=== PATIENT | female | born 1985 | race Caucasian/White ===

== ENCOUNTER 2016-12-03 16:50 | Outpatient (CLI) | payer OTHER ==
--- NOTE | 2016-12-03 17:52 | Non Stress Test Report ---
Non Stress Test Datetime Report Generated by CPN: 12/03/2016 17:52 DEMOGRAPHIC EGA NST: 35.5 INDICATION Indication for Study: Diabetes Mellitus; Ordered by Provider MONITORING Monitor Explained: Monitor Explained; Test Explained; Patient Verbalized Understanding Time on Monitor: 12/03/2016 17:28 Time off Monitor: 12/03/2016 17:49 NST Duration: 21 NST INTERVENTIONS NST Interventions: PO Hydration Physician Notified NST: H. Bill CNM BABY A: [id number] BABY A Movement : Present Contraction Frequency : x1 FHR Baseline : 145 Accelerations : 15X15 Decelerations : None Variability : Moderate 6-25bpm NST Review: Meets Criteria for Reactive NST NST Review and Verified By : Rochelle Ryan RN NST Results: Reactive NST REPORT Report Trigger: Send Report
== END 2016-12-03 17:52 | disposition home or self-care (01) ==
LOC: LC 16:50
PROVIDERS: ATTEND Obstetrics & Gynecology
PROC: 4A1HXCZ Monitoring of Products of Conception, Cardiac Rate, External Approach (ICD-10-PCS; principal; 2016-12-03)
DX: Z34.93 Encounter for supervision of normal pregnancy, unspecified, third trimester (principal); Z36 Encounter for antenatal screening of mother; Z3A.36 36 weeks gestation of pregnancy
CPT/HCPCS: 59025

== ENCOUNTER 2016-12-16 15:06 | Outpatient (CLI) | payer OTHER ==
--- NOTE | 2016-12-16 15:50 | Non Stress Test Report ---
Non Stress Test Datetime Report Generated by CPN: 12/16/2016 15:49 DEMOGRAPHIC EGA NST: 37.4 INDICATION Indication for Study: Ordered by Provider MONITORING Monitor Explained: Monitor Explained; Test Explained; Patient Verbalized Understanding Time on Monitor: 12/16/2016 15:17 Time on Monitor: 12/16/2016 15:16 Time off Monitor: 12/16/2016 15:45 Time off Monitor: 12/16/2016 15:45 NST Duration: 28 NST INTERVENTIONS NST Interventions: PO Hydration; Reposition Patient Physician Notified NST: A. Emmel, CNM BABY A: [id number] BABY A Movement : Present Movement : Present Contraction Frequency : 0 FHR Baseline : 125 Accelerations : 15X15 Accelerations : 15X15 Decelerations : None Decelerations : None Variability : Moderate 6-25bpm NST Review: Meets Criteria for Reactive NST NST Review: Meets Criteria for Reactive NST NST Review and Verified By : Riley Domínguez RN NST Results: Reactive NST Results: Reactive NST REPORT Report Trigger: Send Report
== END 2016-12-16 15:51 | disposition home or self-care (01) ==
LOC: LC 15:06
PROVIDERS: ATTEND Student in an Organized Health Care Education/Training Program
PROC: 4A1HXCZ Monitoring of Products of Conception, Cardiac Rate, External Approach (ICD-10-PCS; principal; 2016-12-16)
DX: Z34.93 Encounter for supervision of normal pregnancy, unspecified, third trimester (principal); Z36 Encounter for antenatal screening of mother; Z3A.37 37 weeks gestation of pregnancy
CPT/HCPCS: 59025

== ENCOUNTER 2016-12-19 06:28 | Inpatient (IN) | payer OTHER ==
[2016-12-19] MEDS ORDERED: RINGERS SOLUTION,LACTATED 300 ML IV ONE (06:43)
[2016-12-19] MEDS ORDERED: OXYTOCIN/NORMAL SALINE 1,000 ML IV PRN ×2 (06:43→14:55)
[2016-12-19] MEDS ORDERED: PENICILLIN G POTASSIUM 5,000,000 UNIT in DEXTROSE 5%-WATER 100 ML IV ONE (06:43)
[2016-12-19] MEDS ORDERED: RINGERS SOLUTION,LACTATED 1,000 ML IV PRN (06:43)
[2016-12-19 06:58] LABS: APPEARANCE,URINE CLOUDY; BILIRUBIN,URINE NEGATIVE (NEGATIVE); GLUCOSE, URINE NEGATIVE (NEGATIVE); KETONES,URINE NEGATIVE (NEGATIVE); LEUKOCYTE ESTERASE,URINE LARGE (NEGATIVE); NITRITE,URINE NEGATIVE (NEGATIVE); PROTEIN,URINE NEGATIVE (NEGATIVE); URINE SPECIFIC GRAVITY 1.006; UROBILINOGEN,URINE NEGATIVE mg/dL (<2.0)
[2016-12-19 07:15] LABS: ABSOLUTE LYMPHOCYTES (AUTO) 1.6 10^3/uL (0.5-4.7); ABSOLUTE MONOCYTES (AUTO) 0.9 10^3/uL (0.1-1.4); ABSOLUTE NEUT (AUTO) 10.7 10^3/uL (1.7-8.2); BASOPHILS % (AUTO) 0.3 % (0-2); EOSINOPHILS % (AUTO) 0.3 % (0-6); HEMOGLOBIN 12.9 g/dL (12.0-15.5); HGB HCT DIFFERENCE 0.7; MEAN CORPUSCULAR HGB CONC 33.9 g/dL (32.0-36.0); MEAN CORPUSCULAR VOLUME 89 fl (80-97); MONOCYTES % (AUTO) 6.7 % (3-13); RED BLOOD COUNT 4.28 10^6/uL (3.72-5.28); RED CELL DISTRIBUTION WIDTH 12.9 % (11.5-14.0); SEGMENTED NEUTROPHILS % (AUTO) 80.7 % (42-78); WHITE BLOOD COUNT 13.3 10^3/uL (4.0-10.5)
[2016-12-19 07:21] LABS: URINE BARBITURATES SCREEN NEGATIVE; URINE METHADONE SCREEN NEGATIVE; URINE OPIATES LOW NEGATIVE; URINE PHENCYCLIDINE SCREEN NEGATIVE
[2016-12-19] MEDS ORDERED: OXYTOCIN/NORMAL SALINE 20 UNIT/1,000 ML RTUINJ ONE ×2 (07:33→11:13)
[2016-12-19 07:34] LABS: ALANINE AMINOTRANSFERASE 32 U/L (9-52); ALBUMIN 3.5 g/dL (3.5-5.0); ALKALINE PHOSPHATASE 133 U/L (38-126); ANION GAP 11 (5-19); ASPARTATE AMINO TRANSFERASE 14 U/L (14-36); BILIRUBIN,TOTAL 0.6 mg/dL (0.2-1.3); BLOOD UREA NITROGEN 6 mg/dL (7-20); CALCIUM 9.8 mg/dL (8.4-10.2); CARBON DIOXIDE 20 mmol/L (22-30); CHLORIDE 109 mmol/L (98-107); CREATININE RESULT 0.45 mg/dL (0.52-1.25); GLUCOSE 99 mg/dL (75-110); LDH 448 U/L (313-618); TOTAL PROTEIN 5.5 g/dL (6.3-8.2)
[2016-12-19] MEDS ORDERED: PENICILLIN G-K 5 MILLION UNIT VIAL ONE ×2 (07:34→11:46)
--- NOTE | 2016-12-19 08:00 | L&D Flow Sheet ---
LD Flowsheet Datetime Report Generated by CPN: 12/19/2016 08:00 Datetime: 12/19/2016 07:45 Pitocin (milliunit): Pitocin Started (milliunits) @ 2; Pitocin 20 Units in 1000ml NS (Sanju Zoe, RN) Datetime: 12/19/2016 07:31 I/O Interventions: Up to BR (Lisbeth Ryan, RN) Datetime: 12/19/2016 07:28 Dilatation (cm): 2.5 (Lisbeth Ryan, RN) Effacement (%): 80 (Lisbeth Ryan, RN) Station: -1 (Lisbeth Ryan, RN) Exam by: Rochelle Ryan RN (Lisbeth Ryan RN) Datetime: 12/19/2016 07:06 Comments: patienting sitting straight up in bed (Agueda Jones, RN) Datetime: 12/19/2016 07:00 Stage of : Antepartum (Agueda Jones, RN) Monitor Mode: External; Palpation (Agueda Jones, RN) Frequency (min): none (Agueda Jones, RN) Resting Tone (Palpate): Relaxed (Agueda Jones, RN) Monitor Mode: External US (Agueda Jones, RN) FHR Baseline Rate : 150 (Agueda Jones, RN) Variability: Moderate 6-25 bpm (Agueda Jones, RN) Accelerations: None (Agueda Jones, RN) Decelerations: None (Agueda Jones, RN) Communication: RN at Bedside; RN Reviewed Strip (Agueda Jones, RN) Datetime: 12/19/2016 06:54 Pain Scale: 0 (Agueda Jones, RN) Pain Presence: None/Denies (Agueda Jones, RN) Pain Type: N/A (Agueda Jones, RN) Vaginal Bleeding: None (Agueda Jones, RN) Level of Consciousness: Fully Conscious (Agueda Jones, RN) DTR's/Clonus: DTRs 1+; No Clonus (Agueda Jones, RN) Headache: Denies (Agueda Jones, RN) Breath Sounds, Left: Clear and Equal (Agueda Jones, RN) Breath Sounds, Right: Clear and Equal (Agueda Jones, RN) Nausea/Vomiting: Denies (Agueda Jones, RN) RUQ Epigastric Pain: Denies (Agueda Jones, RN) LaborFlag: Antepartum (QS system process) Datetime: 12/19/2016 06:53 NBP Sys/Marysol/Mean (mmHg): 120 (QS system process) : 92 (QS system process) : 101 (QS system process) Pulse: 110 (QS system process) LaborFlag: Antepartum (QS system process)
--- NOTE | 2016-12-19 10:00 | L&D Flow Sheet ---
LD Flowsheet Datetime Report Generated by CPN: 12/19/2016 10:00 Datetime: 12/19/2016 09:57 NBP Sys/Marysol/Mean (mmHg): 124 (QS system process) : 70 (QS system process) : 92 (QS system process) Pulse: 94 (QS system process) LaborFlag: Antepartum (QS system process) Datetime: 12/19/2016 09:45 Monitor Mode: External (Lisbeth Ryan RN) Frequency (min): 3-4 (Lisbeth Ryan RN) Quality: Mild/Moderate (Lisbeth Ryan RN) Duration (sec): 50-70 (Lisbeth Ryan RN) Resting Tone (Palpate): Relaxed (Lisbeth Ryan RN) Monitor Mode: External US (Lisbeth Ryan RN) FHR Baseline Rate : 135 (Lisbeth Ryan RN) Variability: Moderate 6-25 bpm (Lisbeth Ryan RN) Accelerations: 15X15 (Lisbeth Ryan RN) Decelerations: None (Lisbeth Ryan RN) Pitocin (milliunit): Pitocin Increased to (milliunits) @ 18 (Lisbeth Ryan RN) Datetime: 12/19/2016 09:43 NBP Sys/Marysol/Mean (mmHg): 128 (QS system process) : 70 (QS system process) : 91 (QS system process) Pulse: 86 (QS system process) LaborFlag: Antepartum (QS system process) Datetime: 12/19/2016 09:30 Monitor Mode: External; Palpation (Lisbeth Ryan RN) Frequency (min): x1 (Lisbeth Ryan RN) Quality: Mild/Moderate (Lisbeth Ryan RN) Duration (sec): 50 (Lisbeth Ryan RN) Resting Tone (Palpate): Relaxed (Lisbeth Ryan RN) Monitor Mode: External US (Lisbeth Ryan RN) FHR Baseline Rate : 135 (Lisbeth Ryan RN) Variability: Moderate 6-25 bpm (Lisbeth Ryan RN) Accelerations: 15X15 (Lisbeth Ryan RN) Decelerations: None (Lisbeth Ryan RN) Pitocin (milliunit): Pitocin Increased to (milliunits) @ 16 (Lisebth Ryan RN) Datetime: 12/19/2016 09:23 I/O Interventions: Up to BR (Lisbeth Ryan RN) Datetime: 12/19/2016 09:15 Monitor Mode: External (Lisbeth Ryan RN) Frequency (min): 2-3 (Lisbeth Ryan RN) Quality: Mild (Lisbeth Ryan RN) Duration (sec): 40-80 (Lisbeth Ryan RN) Resting Tone (Palpate): Relaxed (Lisbeth Ryan RN) Monitor Mode: External US (Lisbeth Ryan, RN) FHR Baseline Rate : 135 (Lisbeth Ryan, RN) Variability: Moderate 6-25 bpm (Lisbeth Ryan, RN) Accelerations: 15X15 (Lisbeth Ryan, RN) Decelerations: None (Lisbeth Ryan, RN) Pitocin (milliunit): Pitocin Increased to (milliunits) @ 14 (Lisbeth Ryan, RN) Datetime: 12/19/2016 09:12 NBP Sys/Marysol/Mean (mmHg): 134 (QS system process) : 81 (QS system process) : 100 (QS system process) Pulse: 95 (QS system process) LaborFlag: Antepartum (QS system process) Datetime: 12/19/2016 09:06 Comments: tracing maternal HR (Lisbeth Ryan, RN) Datetime: 12/19/2016 09:05 Pulse: 99 (QS system process) SpO2 (%): 97 (QS system process) LaborFlag: Antepartum (QS system process) Datetime: 12/19/2016 09:04 Monitor Interventions for FHR: Ultrasound Adjusted (Lisbeth Ryan RN) Communication: RN at Bedside (Lisbeth Ryan RN) Datetime: 12/19/2016 09:00 Monitor Mode: External (Lisbeth Ryan RN) Frequency (min): 3-6 (Lisbeth Ryan RN) Quality: Mild (Lisbeth Ryan RN) Duration (sec): 40-60 (Lisbeth Ryan RN) Resting Tone (Palpate): Relaxed (Lisbeth Ryan RN) Monitor Mode: External US (Lisbeth Ryan RN) FHR Baseline Rate : 135 (Lisbeth Ryan RN) Variability: Moderate 6-25 bpm (Lisbeth Ryan, RN) Accelerations: 15X15 (Lisbeth Ryan, RN) Decelerations: None (Lisbeth Ryan, RN) Pitocin (milliunit): Pitocin Increased to (milliunits) @ 12 (Lisbeth Ryan, RN) Datetime: 12/19/2016 08:58 NBP Sys/Marysol/Mean (mmHg): 128 (QS system process) : 78 (QS system process) : 97 (QS system process) Pulse: 84 (QS system process) LaborFlag: Antepartum (QS system process) Datetime: 12/19/2016 08:48 Bedside Blood Glucose: 82 (QS system process) LaborFlag: Antepartum (QS system process) Datetime: 12/19/2016 08:45 Monitor Mode: External (Lisbethnéstor Ryan, RN) Frequency (min): x2 (Lisbeth Ryan, RN) Quality: Mild (Lisbeth Connor, RN) Duration (sec): 50-80 (Lisbethnéstor Ryan, RN) Resting Tone (Palpate): Relaxed (Lisbeth Ryan, RN) Monitor Mode: External US (Lisbeth Ryan, RN) FHR Baseline Rate : 145 (Lisbethnéstor Ryan, RN) Variability: Moderate 6-25 bpm (Lisbeth Connor, RN) Accelerations: 15X15 (Lisbethnéstor Ryan, RN) Decelerations: None (Lisbeth Ryan, RN) Pitocin (milliunit): Pitocin Increased to (milliunits) @ 10 (Lisbethnéstor Ryan, RN) Datetime: 12/19/2016 08:43 NBP Sys/Marysol/Mean (mmHg): 130 (QS system process) : 81 (QS system process) : 99 (QS system process) Pulse: 98 (QS system process) LaborFlag: Antepartum (QS system process) Datetime: 12/19/2016 08:30 Monitor Mode: External (Lisbeth Ryan, RN) Frequency (min): x1 (Lisbeth Ryan, RN) Quality: Mild (Lisbeth Ryan, RN) Duration (sec): 80 (Lisbeth Ryan, RN) Resting Tone (Palpate): Relaxed (Lisbeth Ryan, RN) Monitor Mode: External US (Lisbeth Ryan, RN) FHR Baseline Rate : 145 (Lisbeth Ryan, RN) Variability: Moderate 6-25 bpm (Lisbeth Ryan, RN) Accelerations: 15X15 (Lisbeth Ryan, RN) Decelerations: None (Lisbeth Ryan, RN) Pitocin (milliunit): Pitocin Increased to (milliunits) @ 8 (Sanju Enriquez RN) Datetime: 12/19/2016 08:29 NBP Sys/Marysol/Mean (mmHg): 136 (QS system process) : 82 (QS system process) : 103 (QS system process) Pulse: 81 (QS system process) LaborFlag: Antepartum (QS system process) Datetime: 12/19/2016 08:24 Comfort Measures: Rocking Chair (Lisbeth Ryan RN) Datetime: 12/19/2016 08:15 Monitor Mode: External (Lisbeth Ryan RN) Frequency (min): x2 (Lisbeth Ryan RN) Quality: Mild (Lisbeth Ryan RN) Duration (sec): 40-90 (Lisbeth Ryan RN) Resting Tone (Palpate): Relaxed (Lisbeth Ryan RN) Monitor Mode: External US (Sanju Enriquez RN) FHR Baseline Rate : 145 (Sanju Enriquez, RN) Variability: Moderate 6-25 bpm (Sanju Enriquez, RN) Accelerations: 15X15 (Sanju Enriquez, RN) Decelerations: None (Sanju Enriquez, RN) Pitocin (milliunit): Pitocin Increased to (milliunits) @ 6 (Sanju Enriquez, RN) I/O Interventions: Up to BR (Sanju Enriquez, RN) Datetime: 12/19/2016 08:13 NBP Sys/Marysol/Mean (mmHg): 135 (QS system process) : 84 (QS system process) : 105 (QS system process) Pulse: 91 (QS system process) LaborFlag: Antepartum (QS system process) Datetime: 12/19/2016 08:00 Monitor Mode: External (Sanju Enriquez RN) Frequency (min): x1 (Sanju Enriquez RN) Quality: Mild (Sanju Enriquez RN) Duration (sec): 90 (Sanju Enriquez RN) Resting Tone (Palpate): Relaxed (Sanju Enriquez RN) Monitor Mode: External US (Sanju Enriquez RN) FHR Baseline Rate : 145 (Sanju Enriquez RN) Variability: Moderate 6-25 bpm (Sanju Enriquez RN) Accelerations: 15X15 (Sanju Enriquez RN) Decelerations: None (Sanju Enriquez RN) Pitocin (milliunit): Pitocin Increased to (milliunits) @ 4 (Sanju Enriquez RN)
[2016-12-19] MEDS ORDERED: PENICILLIN G POTASSIUM 2,500,000 UNIT in DEXTROSE 5%-WATER 50 ML IV SCH (10:46)
[2016-12-19] MEDS ORDERED: EPHEDRINE SULFATE INJ 50 MG/1 ML AMPULE ONE (11:12)
[2016-12-19] MEDS ORDERED: MISOPROSTOL 0.2 MG TABLET ONE (11:12)
[2016-12-19] MEDS ORDERED: BUPIVACAINE HCL 0.25 % INJ/PF (2.5 MG/1 ML) 30 ML VIAL ONE (11:13)
[2016-12-19] MEDS ORDERED: FENTANYL/BUPIVACAINE/NS/PF 200 MCG/100 ML RTUINJ EPI ONE (11:13)
[2016-12-19] MEDS ORDERED: LIDOCAINE 1% INJ-PF (10 MG/ML) 30 ML SDV ONE (11:13)
--- NOTE | 2016-12-19 12:00 | L&D Flow Sheet ---
LD Flowsheet Datetime Report Generated by CPN: 12/19/2016 12:00 Datetime: 12/19/2016 11:59 NBP Sys/Marysol/Mean (mmHg): 132 (QS system process) : 84 (QS system process) : 101 (QS system process) Pulse: 77 (QS system process) LaborFlag: Antepartum (QS system process) Datetime: 12/19/2016 11:58 Epidural Procedure: Cath Placed; Test Dose; Loading Dose (Lisbeth Ryan, RN) Datetime: 12/19/2016 11:51 Procedure Verify: Correct Patient Identity; Correct Side and Site are Marked; Accurate Procedure Consent Form; Agreement on Procedure to be Done; Correct Patient Position (Lisbeth Ryan RN) Epidural Positioning: Sitting (Lisbeth Ryan RN) Anesthesia Comments: Dr Fair at bedside (Lisbeth Ryan RN) Datetime: 12/19/2016 11:50 NBP Sys/Marysol/Mean (mmHg): 137 (QS system process) : 80 (QS system process) : 100 (QS system process) Pulse: 80 (QS system process) LaborFlag: Antepartum (QS system process) Datetime: 12/19/2016 11:49 Pulse: 76 (QS system process) SpO2 (%): 100 (QS system process) LaborFlag: Antepartum (QS system process) Datetime: 12/19/2016 11:45 Membrane Status: Ruptured (Lisbeth Ryan RN) Membranes Rupture Method: Spontaneous (Lisbeth Ryan RN) Amniotic Fluid Color: Clear (Lisbeth Ryan RN) Amniotic Fluid Amount: Moderate (Lisbeth Ryan RN) Amniotic Fluid Odor: Normal (Lisbeth Ryan RN) Datetime: 12/19/2016 11:28 NBP Sys/Marysol/Mean (mmHg): 129 (QS system process) : 73 (QS system process) : 95 (QS system process) Pulse: 81 (QS system process) LaborFlag: Antepartum (QS system process) Datetime: 12/19/2016 11:15 Monitor Mode: External (Lisbeth Ryan RN) Frequency (min): 1-3 (Lisbeth Ryan RN) Quality: Mild/Moderate (Lisbeth Ryan RN) Duration (sec): 50-80 (Lisbeth Ryan RN) Resting Tone (Palpate): Relaxed (Lisbeth Ryan RN) Monitor Mode: External US (Lisbeth Ryan RN) FHR Baseline Rate : 130 (Lisbeth Ryan RN) Variability: Moderate 6-25 bpm (Lisbeth Ryan, RN) Accelerations: 15X15 (Lisbeth Ryan, RN) Decelerations: None (Lisbeth Ryan RN) Pitocin (milliunit): Pitocin Remains (milliunits) @ 20 (Lisbeth Ryan, RN) Datetime: 12/19/2016 11:13 NBP Sys/Marysol/Mean (mmHg): 121 (QS system process) : 79 (QS system process) : 96 (QS system process) Pulse: 92 (QS system process) LaborFlag: Antepartum (QS system process) Datetime: 12/19/2016 11:09 Pain Presence: Intermittent (Lisbeth Ryan RN) Pain Type: Contraction (Lisbeth Ryan RN) Pain Location: Abdomen (Lisbeth Ryan RN) Pain Coping: Requesting Pain Medication or Epidural (Lisbeth Ryan RN) IV/Blood Work: IV Bolus Started (Lisbeth Ryan RN) Anesthesia Plans: Epidural (Lisbeth Ryan RN) LaborFlag: Antepartum (QS system process) Datetime: 12/19/2016 11:00 Monitor Mode: External (Lisbeth Ryan RN) Frequency (min): 1-3 (Lisbeth Ryan RN) Quality: Mild/Moderate (Lisbeth Ryan RN) Duration (sec): 50-90 (Lisbeth Ryan RN) Resting Tone (Palpate): Relaxed (Lisbeth Ryan RN) Monitor Mode: External US (Lisbeth Ryan RN) FHR Baseline Rate : 130 (Lisbeth Ryan RN) Variability: Moderate 6-25 bpm (Lisbeth Ryan RN) Accelerations: 15X15 (Lisbeth Ryan RN) Decelerations: None (Lisbeth Ryan RN) Pitocin (milliunit): Pitocin Remains (milliunits) @ 20 (Lisbeth Ryan RN) Datetime: 12/19/2016 10:58 NBP Sys/Marysol/Mean (mmHg): 115 (QS system process) : 68 (QS system process) : 86 (QS system process) Pulse: 86 (QS system process) LaborFlag: Antepartum (QS system process) Datetime: 12/19/2016 10:45 Monitor Mode: External (Lisbeth Ryan RN) Frequency (min): 2-3 (Lisbeth Ryan RN) Quality: Mild/Moderate (Lisbeth Ryan RN) Duration (sec): 80-90 (Lisbeth Ryan RN) Resting Tone (Palpate): Relaxed (Lisbeth Ryan RN) Monitor Mode: External US (Lisbeth Ryan RN) FHR Baseline Rate : 135 (Lisbeth Ryan RN) Variability: Moderate 6-25 bpm (Lisbeth Ryan RN) Accelerations: 15X15 (Lisbeth Ryan RN) Decelerations: None (Lisbeth Ryan RN) Pitocin (milliunit): Pitocin Remains (milliunits) @ 20 (Lisbeth Ryan RN) Datetime: 12/19/2016 10:44 Monitor Interventions for UA: [place] Adjusted (Lisbeth Ryan, RN) Datetime: 12/19/2016 10:42 Patient Position/Activity: Birthing Ball (Lisbeth Ryan, RN) Datetime: 12/19/2016 10:37 I/O Interventions: Up to BR (Lisbeth Ryan, RN) Datetime: 12/19/2016 10:30 Monitor Mode: External (Lisbeth Ryan, RN) Resting Tone (Palpate): Relaxed (Lisbeth Ryan, RN) Contraction Comments: contractions not tracing on monitor (Lisbeth Ryan, RN) Monitor Mode: External US (Lisbeth Ryan, RN) FHR Baseline Rate : 135 (Lisbeth Ryan, RN) Variability: Moderate 6-25 bpm (Lisbeth Ryan, RN) Accelerations: 15X15 (Lisbeth Ryan, RN) Decelerations: None (Lisbeth Ryan, RN) Pitocin (milliunit): Pitocin Remains (milliunits) @ 20 (Lisbeth Ryan, RN) Datetime: 12/19/2016 10:28 NBP Sys/Marysol/Mean (mmHg): 153 (QS system process) : 91 (QS system process) : 115 (QS system process) Pulse: 88 (QS system process) LaborFlag: Antepartum (QS system process) Datetime: 12/19/2016 10:15 Monitor Mode: External (Lisbeth Ryan, RN) Frequency (min): 2-3 (Lisbeth Ryan RN) Quality: Mild/Moderate (Lisbeth Ryan, RN) Duration (sec): 50-70 (Lisbeth Ryan, RN) Resting Tone (Palpate): Relaxed (Lisbeth Ryan, RN) Monitor Mode: External US (Lisbeth Ryan RN) FHR Baseline Rate : 135 (Lisbeth Ryan, RN) Variability: Moderate 6-25 bpm (Lisbeth Ryan, RN) Accelerations: 15X15 (Lisbeth Ryan, RN) Decelerations: None (Lisbeth Ryan, RN) Pitocin (milliunit): Pitocin Remains (milliunits) @ 20 (Lisbeth Ryan, RN) Datetime: 12/19/2016 10:13 NBP Sys/Marysol/Mean (mmHg): 123 (QS system process) : 74 (QS system process) : 94 (QS system process) Pulse: 80 (QS system process) LaborFlag: Antepartum (QS system process) Datetime: 12/19/2016 10:00 Monitor Mode: External (Lisbeth Ryan RN) Frequency (min): 2-4 (Lisbeth Ryan RN) Quality: Mild/Moderate (Lisbeth Ryan RN) Duration (sec): 50-70 (Lisbeth Ryan RN) Resting Tone (Palpate): Relaxed (Lisbeth Ryan RN) Monitor Mode: External US (Lisbeth Ryan RN) FHR Baseline Rate : 135 (Lisbeth Ryan RN) Variability: Moderate 6-25 bpm (Lisbeth Ryan, RN) Accelerations: 15X15 (Lisbeth Ryan, RN) Decelerations: None (Lisbeth Ryan, RN) Pitocin (milliunit): Pitocin Increased to (milliunits) @ 20 (Lisbeth Ryan, RN)
--- NOTE | 2016-12-19 12:44 | L&D Progress Notes ---
PROGRESS NOTES Datetime Report Generated by CPN: 12/19/2016 12:44 PROGRESS NOTE Impression: Normal Progression of Labor Procedures: Sterile Vag Exam Plan: Continue Present Management; Induction Informed Consent Obtained: Vaginal Delivery Vital Signs : Reviewed; Within Normal Limits Comment: Pt up to bathrom, SROM Pt desires epidural SVE after epidural as above Continue pitocin S/p 2 doses pcn Anticipate VAGINAL EXAM Dilatation: 4 Dilatation: 2 Effacement: 90 Effacement: 80 Station: 0 Station: -1 Contractions: 2-4 Contractions: irregular MEMBRANES Membranes: Ruptured Membranes: Intact Amniotic Fluid Color: Clear FETUS A FHR - Baseline: 135 Monitoring: External US Variability: Moderate 6-25bpm Accelerations: 15X15 FHR Category: Category I Estimated Weight (gm): 3400 SIGNATURE SIGNATURE: [id number] SIGNATURE: [id number] SIGNATURE: [id number] Assignment: Patricia Park MD Signature: with User ID: HDrake : with User ID: Pari
--- NOTE | 2016-12-19 14:00 | L&D Flow Sheet ---
LD Flowsheet Datetime Report Generated by CPN: 12/19/2016 14:00 Datetime: 12/19/2016 13:44 Patient Position/Activity: Left Extreme; Peanut Ball (Lisbeth Ryan, RN) Datetime: 12/19/2016 13:43 NBP Sys/Marysol/Mean (mmHg): 125 (QS system process) : 78 (QS system process) : 98 (QS system process) Pulse: 77 (QS system process) LaborFlag: Antepartum (QS system process) Datetime: 12/19/2016 13:27 NBP Sys/Marysol/Mean (mmHg): 123 (QS system process) : 67 (QS system process) : 88 (QS system process) Pulse: 91 (QS system process) LaborFlag: Antepartum (QS system process) Datetime: 12/19/2016 13:15 NBP Sys/Marysol/Mean (mmHg): 116 (QS system process) : 69 (QS system process) : 87 (QS system process) Pulse: 85 (QS system process) Monitor Mode: External (Lisbeth Ryan RN) Frequency (min): 2-2.5 (Lisbeth Ryan RN) Quality: Moderate (Lisbeth Ryan RN) Duration (sec): 50-90 (Lisbeth Ryan RN) Resting Tone (Palpate): Relaxed (Lisbeth Ryan RN) Monitor Mode: External US (Lisbeth Ryan RN) FHR Baseline Rate : 115 (Lisbeth Ryan RN) Variability: Moderate 6-25 bpm (Lisbeth Ryan RN) Accelerations: 15X15 (Lisbeth Ryan RN) Decelerations: None (Lisbeth Ryan, RN) Pitocin (milliunit): Pitocin Remains (milliunits) @ 20 (Lisbeth Ryan, RN) LaborFlag: Antepartum (QS system process) Datetime: 12/19/2016 13:07 Patient Position/Activity: Left Lateral (Lisbeth Ryan, RN) Datetime: 12/19/2016 13:06 Monitor Interventions for FHR: Ultrasound Adjusted (Lisbeth Ryan, RN) Patient Position/Activity: Right Lateral (Lisbeth Ryan, RN) Communication: RN at Bedside (Lisbeth Ryan, RN) Datetime: 12/19/2016 13:00 Monitor Mode: External; Palpation (Lisbeth Ryan, RN) Frequency (min): 1.5-3 (Lisbeth Ryan RN) Quality: Moderate (Lisbeth Ryan RN) Duration (sec): 50-90 (Lisbeth Ryan RN) Resting Tone (Palpate): Relaxed (Lisbeth Ryan, RN) Monitor Mode: External US (Lisbeth Ryan RN) FHR Baseline Rate : 120 (Lisbeth Ryan RN) Variability: Moderate 6-25 bpm (Lisbeth Ryan, RN) Accelerations: 15X15 (Lisbeth Ryan, RN) Decelerations: None (Lisbeth Ryan, RN) Pitocin (milliunit): Pitocin Remains (milliunits) @ 20 (Lisbeth Ryan RN) Datetime: 12/19/2016 12:58 NBP Sys/Marysol/Mean (mmHg): 127 (QS system process) : 81 (QS system process) : 100 (QS system process) Pulse: 84 (QS system process) LaborFlag: Antepartum (QS system process) Datetime: 12/19/2016 12:45 Monitor Mode: External (Lisbeth Ryan, RN) Frequency (min): 2-3 (Lisbeth Ryan, RN) Quality: Mild/Moderate (Lisbeth Ryan, RN) Duration (sec): 50-90 (Lisbeth Ryan, RN) Resting Tone (Palpate): Relaxed (Lisbeth Ryan, RN) Monitor Mode: External US (Lisbeth Ryan, RN) FHR Baseline Rate : 125 (Lisbeth Ryan, RN) Variability: Moderate 6-25 bpm (Lisbeth Ryan, RN) Accelerations: 15X15 (Lisbeth Ryan, RN) Decelerations: None (Lisbeth Ryan, RN) Pitocin (milliunit): Pitocin Remains (milliunits) @ 20 (Lisbeth Ryan RN) Datetime: 12/19/2016 12:44 NBP Sys/Marysol/Mean (mmHg): 126 (QS system process) : 80 (QS system process) : 97 (QS system process) Pulse: 81 (QS system process) LaborFlag: Antepartum (QS system process) Datetime: 12/19/2016 12:31 Patient Position/Activity: Left Lateral (Lisbeth Ryan, RN) Datetime: 12/19/2016 12:30 Monitor Mode: External (Lisbeth Ryan RN) Frequency (min): 1.5-3 (Lisbeth Ryan RN) Quality: Mild/Moderate (Lisbeth Ryan RN) Duration (sec): 50-90 (Lisbeth Ryan RN) Resting Tone (Palpate): Relaxed (Lisbeth Ryan RN) Monitor Mode: External US (Lisbeth Ryan RN) FHR Baseline Rate : 125 (Lisbeth Ryan RN) Variability: Moderate 6-25 bpm (Lisbeth Ryan RN) Accelerations: 15X15 (Lisbeth Ryan, RN) Decelerations: None (Lisbeth Ryan RN) Pitocin (milliunit): Pitocin Remains (milliunits) @ 20 (Lisbeth Ryan RN) Datetime: 12/19/2016 12:27 Respirations: 16 (Lisbeth Ryan RN) Temperature (F): 98.3 (Lisbeth Ryan RN) Temperature (C): 36.8 (QS system process) Bedside Blood Glucose: 75 (QS system process) Pain Scale: 2 (Lisbeth Ryan RN) Pain Presence: Intermittent (Lisbeth Ryan RN) Pain Type: Contraction (Lisbeth Ryan RN) Pain Location: Back (Lisbeth Ryan RN) Pain Coping: Talking Through Contractions (Lisbeth Ryan RN) LaborFlag: Antepartum (QS system process) Datetime: 12/19/2016 12:16 Dilatation (cm): 4.0 (Lisbeth Ryan RN) Effacement (%): 80 (Lisbeth Ryan RN) Station: -1 (Lisbeth Ryan RN) Exam by: Pop Khan CNM (Lisbeth Ryan RN) Communication Comments: Pop Khan CNM on unit (Lisbeth Ryan RN) Datetime: 12/19/2016 12:15 Monitor Mode: External (Lisbeth Ryan RN) Frequency (min): 2-3 (Lisbeth Ryan RN) Quality: Mild/Moderate (Lisbeth Ryan RN) Duration (sec): 50-80 (Lisbeht Ryan RN) Resting Tone (Palpate): Relaxed (Lisbeth Ryan RN) Monitor Mode: External US (Lisbeth Ryan, RN) FHR Baseline Rate : 120 (Lisbeth Ryan, RN) Variability: Moderate 6-25 bpm (Lisbeth Ryan RN) Accelerations: 15X15 (Lisbeth Ryan RN) Decelerations: None (Lisbeth Ryan RN) Pitocin (milliunit): Pitocin Remains (milliunits) @ 20 (Lisbeth Ryan, RN) Datetime: 12/19/2016 12:14 NBP Sys/Marysol/Mean (mmHg): 120 (QS system process) : 70 (QS system process) : 90 (QS system process) Pulse: 74 (QS system process) LaborFlag: Antepartum (QS system process) Datetime: 12/19/2016 12:10 Patient Care Comments: LR returned to 125ml/hr (Lisbeth Ryan RN) Datetime: 12/19/2016 12:08 NBP Sys/Marysol/Mean (mmHg): 105 (QS system process) : 57 (QS system process) : 76 (QS system process) Pulse: 72 (QS system process) LaborFlag: Antepartum (QS system process) Datetime: 12/19/2016 12:05 NBP Sys/Marysol/Mean (mmHg): 123 (QS system process) : 81 (QS system process) : 96 (QS system process) Pulse: 82 (QS system process) LaborFlag: Antepartum (QS system process) Datetime: 12/19/2016 12:04 NBP Sys/Marysol/Mean (mmHg): 123 (QS system process) : 76 (QS system process) : 94 (QS system process) Pulse: 73 (QS system process) LaborFlag: Antepartum (QS system process) Datetime: 12/19/2016 12:03 NBP Sys/Marysol/Mean (mmHg): 124 (QS system process) : 87 (QS system process) : 100 (QS system process) Pulse: 87 (QS system process) Epidural Procedure Other: Pump Started (Lisbeth Ryan RN) Anesthesia Level Check: T10- Umbilicus (Lisbeth Ryan RN) LaborFlag: Antepartum (QS system process) Datetime: 12/19/2016 12:01 NBP Sys/Marysol/Mean (mmHg): 132 (QS system process) : 82 (QS system process) : 100 (QS system process) Pulse: 85 (QS system process) Comments: pt sitting for epidural, unable to determine (Lisbeth Ryan RN) LaborFlag: Antepartum (QS system process) Datetime: 12/19/2016 12:00 NBP Sys/Marysol/Mean (mmHg): 132 (QS system process) : 82 (QS system process) : 102 (QS system process) Pulse: 83 (QS system process) Pitocin (milliunit): Pitocin Remains (milliunits) @ 20 (Lisbeth Ryan RN) LaborFlag: Antepartum (QS system process)
[2016-12-19] MEDS ORDERED: IBUPROFEN 800 MG TABLET ONE (14:42)
[2016-12-19] MEDS ORDERED: MEASLES,MUMPS&RUBELLA VACC/PF 0.5 ML VIAL SUBCUT PRN (14:55)
[2016-12-19] MEDS ORDERED: ACETAMINOPHEN WITH CODEINE #3 TABLET PO PRN ×2 (14:55)
[2016-12-19] MEDS ORDERED: ZOLPIDEM TARTRATE 5 MG TABLET PO PRN (14:55)
[2016-12-19] MEDS ORDERED: DIBUCAINE 1% OINTMENT 28 GM TP PRN (14:55)
[2016-12-19] MEDS ORDERED: DIPH/PERTUSS(ACELL)/TETANUS VAC/PF 0.5 ML SYR (>=10YO) IM PRN (14:55)
[2016-12-19] MEDS ORDERED: BENZOCAINE/MENTHOL AEROSOL SPRAY 56 ML TOP PRN (14:55)
--- NOTE | 2016-12-19 16:00 | L&D Flow Sheet ---
LD Flowsheet Datetime Report Generated by CPN: 12/19/2016 16:00 Datetime: 12/19/2016 15:57 NBP Sys/Marysol/Mean (mmHg): 111 (QS system process) : 58 (QS system process) : 78 (QS system process) Pulse: 88 (QS system process) Datetime: 12/19/2016 15:43 NBP Sys/Marysol/Mean (mmHg): 116 (QS system process) : 60 (QS system process) : 82 (QS system process) Pulse: 70 (QS system process) Datetime: 12/19/2016 15:30 Stage of : Recovery (Lisbeth Ryan RN) Pain Scale: 2 (Lisbeth Ryan RN) Pain Presence: Constant (Lisbeth Ryan RN) Pain Type: Burning; Cramping; Pressure; Ache (Lisbeth Ryan RN) Pain Location: Perineum (Lisbeth Ryan RN) Datetime: 12/19/2016 15:28 NBP Sys/Marysol/Mean (mmHg): 116 (QS system process) : 98 (QS system process) : 104 (QS system process) Pulse: 77 (QS system process) Datetime: 12/19/2016 15:15 Stage of : Recovery (Lisbeth Ryan RN) Pain Scale: 2 (Lisbeth Ryan RN) Pain Presence: Constant (Lisbeth Ryan RN) Pain Type: Burning; Cramping; Pressure; Ache (Lisbeth Ryan, RN) Pain Location: Perineum (Lisbeth Ryan, RN) Datetime: 12/19/2016 15:00 Stage of : Recovery (Lisbeth Ryan RN) Pain Scale: 2 (Lisbeth Ryan RN) Pain Presence: Constant (Lisbeth Ryan RN) Pain Type: Burning; Cramping; Pressure; Ache (Lisbeth Ryan, RN) Pain Location: Perineum (Lisbeth Ryan, RN) Datetime: 12/19/2016 14:45 Stage of : Recovery (Lisbeth Ryan RN) Respirations: 16 (Lisbeth Ryan RN) Temperature (F): 97.9 (Lisbeth Ryan RN) Temperature (C): 36.6 (QS system process) Pain Scale: 3 (Lisbeth Ryan RN) Pain Presence: Constant (Lisbeth Ryan RN) Pain Type: Burning; Cramping; Pressure; Ache (Lisbeth Ryan RN) Pain Location: Perineum (Lisbeth Ryan RN) Datetime: 12/19/2016 14:44 NBP Sys/Marysol/Mean (mmHg): 120 (QS system process) : 70 (QS system process) : 89 (QS system process) Pulse: 80 (QS system process) Datetime: 12/19/2016 14:28 Stage of : Recovery (Lisbeth Ryan RN) NBP Sys/Marysol/Mean (mmHg): 114 (QS system process) : 53 (QS system process) : 77 (QS system process) Pulse: 90 (QS system process) Pain Scale: 3 (Lisbeth Ryan RN) Pain Presence: Constant (Lisbeth Ryan RN) Pain Type: Burning; Cramping; Pressure; Ache (Lisbeth Ryan RN) Pain Location: Perineum (Lisbeth Ryan RN) Datetime: 12/19/2016 14:21 Stage of : Recovery (Lisbeth Ryan, RN) Datetime: 12/19/2016 14:15 Monitor Mode: External (Lisbeth Ryan RN) Frequency (min): 2-3 (Lisbeth Ryan RN) Quality: Moderate (Lisbeth Ryan RN) Duration (sec): 50-90 (Lisbeth Ryan RN) Resting Tone (Palpate): Relaxed (Lisbeth Ryan RN) Monitor Mode: External US (Lisbeth Ryan RN) FHR Baseline Rate : 125 (Lisbeth Ryan RN) Variability: Moderate 6-25 bpm (Lisbeth Ryan RN) Accelerations: None (Lisbeth Ryan RN) Decelerations: Early (Lisbeth Ryan RN) Pitocin (milliunit): Pitocin Remains (milliunits) @ 20 (Lisbeth Ryan RN) Datetime: 12/19/2016 14:13 NBP Sys/Marysol/Mean (mmHg): 170 (QS system process) : 78 (QS system process) : 112 (QS system process) Pulse: 125 (QS system process) LaborFlag: Antepartum (QS system process) Datetime: 12/19/2016 14:12 I/O Interventions: Shrestha Discontinued (Lisbeth Ryan, RN) Datetime: 12/19/2016 14:11 Pushing: Coached on Pushing; Urge to Push (Lisbeth Ryan RN) Pushing Position: Pushing with Contractions (Lisbeth Ryan RN) Pushing Progress: Descent with Pushing (Lisbeth Ryan RN) Preparation for Delivery: Setup for Delivery (Lisbeth Ryan RN) Datetime: 12/19/2016 14:09 Dilatation (cm): 10.0 (Lisbeth Ryan, RN) Effacement (%): 100 (Lisbeth Ryan RN) Station: 2 (Lisbeth Ryan RN) Exam by: H Bill CNM (Lisbeth Ryan RN) Datetime: 12/19/2016 14:07 Communication Comments: H. Bill CNM at bedside (Lisbeth Ryan RN) Datetime: 12/19/2016 14:06 Monitor Interventions for FHR: Ultrasound Adjusted (Lisbeth Ryan RN) Communication: RN at Bedside (Lisbeth Ryan RN) Datetime: 12/19/2016 14:00 NBP Sys/Marysol/Mean (mmHg): 133 (QS system process) : 74 (QS system process) : 96 (QS system process) Pulse: 88 (QS system process) Monitor Mode: External (Lisbeth Ryan RN) Frequency (min): 2-3 (Lisbeth Ryan RN) Quality: Moderate (Lisbeth Ryan RN) Duration (sec): 50-90 (Lisbeth Ryan RN) Resting Tone (Palpate): Relaxed (Lisbeth Ryan RN) Monitor Mode: External US (Lisbeth Ryan RN) FHR Baseline Rate : 125 (Lisbeth Ryan RN) Variability: Moderate 6-25 bpm (Lisbeth Ryan, RN) Accelerations: 10X10 (Lisbeth Ryan RN) Decelerations: Early (Lisbeth Ryan RN) Pitocin (milliunit): Pitocin Remains (milliunits) @ 20 (Lisbeth Ryan RN) LaborFlag: Antepartum (QS system process)
--- NOTE | 2016-12-19 16:02 | Delivery Summary ---
Del Sum A-C Datetime Report Generated by CPN: 12/19/2016 16:02 ADMISSION DATA Chief Complaint: Scheduled Induction of Labor Indication for Induction: Gest. HTN/PreEclampsia/Eclampsia Admission Impression: Term, Intrauterine Admit Provider Comments: IOL for ghtn, labs wnl GDM on glyburide, 1.25 mg am, and 2.5 mg @ hs. See records for complete hx. GBS positive, pcn NKDA Pitocin per protocol Anticipate DELIVERY PERSONNEL Delivery Doctor:: Angela Khan CNM Labor and Delivery Nurse:: Lisbeth Ryan RN Nursery Nurse:: Delores Baez Tech/[employer] OFFICER: Maria Iasbel Lemus CNA II MATERNAL INFORMATION Delivery Anesthesia: Epidural Medications After Delivery: Pitocin Bolus-Please Comment; Pitocin Drip 20 Units/1000ml NSS; Other-Please Comment Meds After Delivery Comment: Cytotec 1000mcg CA Estimated Blood Loss (ml): 200 Maternal Complications: None Provider Comments: of viable female infant over intact perineum, head shoulders and body delivered without difficulty. Infant with spontaneous cry and respirations, to maternal abdomen, cord clamped X 2, cut free by pts after 2 minute delay. Spontaneous delivery of placenta via ubsh mechanism, appears intact, 3VC. Vagina and perineum inspected, no lacerations ntoed, hemostasis acheived with external fundal massage and IV pitocin. Mother and infant in stable condition, routine pp care. LABOR SUMMARY EDC: 01/02/2017 00:00 No. Babies in Womb: 1 Attempted: No Labor Anesthesia: Epidural LABOR INFORMATION Reason for Induction: Gestational Hypertension; Maternal Diabetes Onset of Labor: 12/19/2016 07:45 Complete Dilatation: 12/19/2016 14:09 Oxytocin: Induction Group B Beta Strep: Positive Antibiotics # of Doses: 2 Antibiotics Time of Last Dose: 1158 Name of Antibiotic Given: PCN Steroids Given: None Reason Steroids Not Administered: Not Applicable MEMBRANES Membranes Rupture Method: Spontaneous Rupture of Membranes: 12/19/2016 11:45 Length of Rupture (hr): 2.55 Amniotic Fluid Color: Clear Amniotic Fluid Amount: Moderate Amniotic Fluid Odor: Normal STAGES OF LABOR Stage 1 hr: 6 Stage 1 min: 24 Stage 2 hr: 0 Stage 2 min: 9 Stage 3 hr: 0 Stage 3 min: 3 Total Time in Labor hr: 6 Total Time in Labor min: 36 VAGINAL DELIVERY Episiotomy: None Laceration Extension: N/A Laceration Type: None Laceration Repair: Not Applicable Laceration Repair Note: n/a CSECTION DELIVERY Primary Indication: N/A Secondary Indication: N/A CSection Incidence: N/A Labor: N/A Elective: N/A CSection Incision: N/A BABY A INFORMATION Infant Delivery Date/Time: 12/19/2016 14:18 Method of Delivery: Vaginal Born in Route : No : N/A Forceps: N/A Vacuum Extraction: N/A Shoulder Dystocia : No PRESENTATION/POSITION BABY A Presentation: Cephalic Cephalic Presentation: Vertex Vertex Position: Right Occipital Anterior Breech Presentation: N/A PLACENTA INFORMATION BABY A Placenta Delivery Time : 12/19/2016 14:21 Placenta Method of Delivery: Spontaneous Placenta Status: Delivered SCORES BABY A Heart Rate 1 min: >100 bpm Resp Effort 1 min: Good Cry Reflex Irritability 1 min: Cough or Sneeze or Pulls Away Muscle Tone 1 min: Active Motion Color 1 min: Body [place], Extremities Blue Resuscitation Effort 1 min: Tactile Stimulation SCORE 1 MIN: 9 Heart Rate 5 min: >100 bpm Resp Effort 5 min: Good Cry Reflex Irritability 5 min: Cough or Sneeze or Pulls Away Muscle Tone 5 min: Active Motion Color 5 min: Body [place], Extremities Blue Resuscitation Effort 5 min: Tactile Stimulation SCORE 5 MIN: 9 INFORMATION BABY A Gestational Age at Delivery: 38.0 Gestational Status: Early Term- 37- 38.6 Weeks Infant Outcome : Liveborn Infant Condition : Stable Infant Sex: Female IDENTIFICATION BABY A Infant Verification Date/Time: 12/19/2016 14:29 ID Band Number: [id number] Mother's Name Verified: Yes Infant RN Verifying Infant: Zain Ryan RN WEIGHT/LENGTH BABY A Infant Birthweight (gm): 3155 Infant Weight (lb): 6 Weight (oz): 15 Infant Length (in): 20.50 Length (cm): 52.07 CORD INFORMATION BABY A No. Cord Vessels: 3 Nuchal Cord : N/A Cord Blood Taken: Yes-For Storage (Mom's Blood type +) Infant Suction: None ASSESSMENT BABY A Complications: None Physical Findings at Delivery: Within Normal Limits Physical Findings- Other: Baby to nursery at 1532 with Jose Gifford RN Infant Respirations: Appears Normal Skin to Skin: Yes Skin to Skin Time (min): 60 Manager Secondary/ALS Called : No Infant Care By: Jose Gifford RN Transferred To: Transfer Nursery BABY B INFORMATION : N/A SIGNATURES Assignment: Patricia Park MD Signature: with User ID: Pari : with User ID: [email or web address]
--- NOTE | 2016-12-19 16:13 | Admission Physical ---
Datetime Report Generated by CPN: 12/19/2016 16:12 CURRENT ADMISSION Hx Assessment: The History has been Reviewed and is Current Chief Complaint: Scheduled Induction of Labor Indication for Induction: Gest. HTN/PreEclampsia/Eclampsia Admit Plan: Admit to Unit; Initiate Labor Induction Protocol ALLERGIES Medication Allergies: No Medication Allergies: No Known Allergies (12/19/2016) Medication Allergies: No Known Allergies (12/16/2016) Medication Allergies: No Known Allergies (12/03/2016) Medication Allergies: No Known Allergies (01/29/2011) Latex: No Latex Allergies Food Allergies: none Environmental Allergies: none OBSTETRICAL HISTORY EDC: 01/02/2017 00:00 : 3 Para: 2 Term: 2 : 0 SAB: 0 IAB: 0 Ectopic: 0 Livin Cesareans: 0 VBACs: 0 Multiple Births: 0 Gestational Diabetes: Yes Rh Sensitization: No Incompetent Cervix: No FLOWER: No Infertility: Yes ART Treatment: No Uterine Anomaly: No IUGR: No Hx Previous C/S: No Macrosomia: No Hx Loss/Stillborn: No PIH: Yes Hx : No Placenta Previa/Abruption: No Depression/PP Depression: No PTL/PROM: No Post Hemorrhage: No Current Procedures: Ultrasound; NST Obstetrical History Comments: G1: preeclampsia, IVF, 02/13/2011 G2: 05/12/2013 G3: current, GDM SEE RECORDS Alcohol: No Marijuana : No Cocaine: No Other Illicit Drugs: No Cigarettes: Never Smoker. 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 Surgery: No Heart Disease: No Hosp/Surgery: Yes Autoimmune Disorder: No Anesthetic Complications: No Kidney Disease: No Abnormal Pap Smear: No Neuro/Epilepsy: No Psychiatric Disorders: No Other Medical Diseases: No Hepatitis/Liver Disease: No Significant Family History: No Varicosities/Phlebitis: No Trauma/Violence : No Thyroid Dysfunction: No Medical History Comments: on BP meds prior to INFECTIOUS HISTORY Gonorrhea: No Genital Herpes: No Chlamydia: No Tuberculosis: No Syphilis: No Hepatitis: No HIV/AIDS Exposure: No Rash or Viral Illness: No HPV: No PHYSICAL EXAM General: Normal HEENT: Normal Neurologic: Deferred Thyroid: Normal Heart: Normal Lungs: Normal Breast: Normal Back: Normal Abdomen: Normal Genitourinary Exam: Normal Extremities: Normal DTRs: Normal Pelvic Type: Adequate Physical Exam Comments: pelvis proven to 6 lbs Vital Signs: Reviewed VAGINAL EXAM Dilatation: 4 Dilatation: 2 Effacement: 90 Effacement: 80 Station: 0 Station: -1 Contraction Comments: 2-4 Contraction Comments: irregular MEMBRANES Membranes: Ruptured Membranes: Intact Amniotic Fluid Color: Clear FETUS A EGA: 38.0 Monitoring: External US FHR- Baseline: 150 Variability: Moderate 6-25bpm Accelerations: 15X15 Decelerations: None FHR Category: Category I Estimated Weight (gm): 3400 Admit Comment: IOL for ghtn, labs wnl GDM on glyburide, 1.25 mg am, and 2.5 mg @ hs. See records for complete hx. GBS positive, pcn NKDA Pitocin per protocol Anticipate PLANS FOR LABOR AND DELIVERY Labor and Delivery: None Pain Management: Epidural Feeding Preference: Breast Benefit of Breast Feed Discussed: Yes Circumcision: N/A INFORMED CONSENT Informed Consent Obtained: Vaginal Delivery Assignment: Patricia Park MD Signature: with User ID: Pari : with User ID: [email or web address]
[2016-12-19] MEDS: DOCUSATE SODIUM 100 MG CAPSULE PO SCH (17:34)
[2016-12-19] MEDS: FERROUS SULFATE 325 MG TABLET PO SCH (17:34)
--- NOTE | 2016-12-19 19:00 | L&D Flow Sheet ---
LD Flowsheet Datetime Report Generated by CPN: 12/19/2016 19:00 Datetime: 12/19/2016 16:00 Stage of : Recovery (Lisbeth Ryan RN) Pain Scale: 2 (Lisbeth Ryan RN) Pain Presence: Constant (Lisbeth Ryan RN) Pain Type: Burning; Cramping; Pressure; Ache (Lisbeth Ryan, RN) Pain Location: Perineum (Lisbeth Ryan, RN) Datetime: 12/19/2016 15:57 NBP Sys/Marysol/Mean (mmHg): 111 (QS system process) : 58 (QS system process) : 78 (QS system process) Pulse: 88 (QS system process) Datetime: 12/19/2016 15:45 Stage of : Recovery (Lisbeth Ryan RN) Pain Scale: 2 (Lisbeth Ryan RN) Pain Presence: Constant (Lisbeth Ryan RN) Pain Type: Burning; Cramping; Pressure; Ache (Lisbeth Ryan RN) Pain Location: Perineum (Lisbeth Ryan RN) Datetime: 12/19/2016 15:43 NBP Sys/Marysol/Mean (mmHg): 116 (QS system process) : 60 (QS system process) : 82 (QS system process) Pulse: 70 (QS system process) Datetime: 12/19/2016 15:30 Stage of : Recovery (Lisbeth Ryan RN) Pain Scale: 2 (Lisbeth Ryan RN) Pain Presence: Constant (Lisbeth Ryan RN) Pain Type: Burning; Cramping; Pressure; Ache (Lisbeth Ryan RN) Pain Location: Perineum (Lisbeth Ryan RN) Datetime: 12/19/2016 15:28 NBP Sys/Marysol/Mean (mmHg): 116 (QS system process) : 98 (QS system process) : 104 (QS system process) Pulse: 77 (QS system process) Datetime: 12/19/2016 15:15 Stage of : Recovery (Lisbeth Ryan RN) Pain Scale: 2 (Lisbeth Ryan RN) Pain Presence: Constant (Lisbeth Ryan RN) Pain Type: Burning; Cramping; Pressure; Ache (Lisbeth Ryan RN) Pain Location: Perineum (Lisbeth Ryan RN) Datetime: 12/19/2016 15:00 Stage of : Recovery (Lisbeth Ryan RN) Pain Scale: 2 (Lisbeth Ryan RN) Pain Presence: Constant (Lisbeth Ryan RN) Pain Type: Burning; Cramping; Pressure; Ache (Lisbeth Ryan RN) Pain Location: Perineum (Lisbeth Ryan RN) Datetime: 12/19/2016 14:45 Stage of : Recovery (Lisbeth Ryan RN) Respirations: 16 (Lisbeth Ryan RN) Temperature (F): 97.9 (Lisbeth Ryan RN) Temperature (C): 36.6 (QS system process) Pain Scale: 3 (Lisbeth Ryan RN) Pain Presence: Constant (Lisbeth Ryan RN) Pain Type: Burning; Cramping; Pressure; Ache (Lisbeth Ryan RN) Pain Location: Perineum (Lisbeth Ryan RN) Datetime: 12/19/2016 14:44 NBP Sys/Marysol/Mean (mmHg): 120 (QS system process) : 70 (QS system process) : 89 (QS system process) Pulse: 80 (QS system process) Datetime: 12/19/2016 14:28 Stage of : Recovery (Lisbeth Ryan RN) NBP Sys/Marysol/Mean (mmHg): 114 (QS system process) : 53 (QS system process) : 77 (QS system process) Pulse: 90 (QS system process) Pain Scale: 3 (Lisbeth Ryan RN) Pain Presence: Constant (Lisbeth Ryan RN) Pain Type: Burning; Cramping; Pressure; Ache (Lisbeth Ryan RN) Pain Location: Perineum (Lisbeth Ryan RN) Datetime: 12/19/2016 14:21 Stage of : Recovery (Lisbeth Ryan, RN) Datetime: 12/19/2016 14:15 Monitor Mode: External (Lisbeth Ryan RN) Frequency (min): 2-3 (Lisbeth Ryan RN) Quality: Moderate (Lisbeth Ryan RN) Duration (sec): 50-90 (Lisbeth Ryan RN) Resting Tone (Palpate): Relaxed (Lisbeth Ryan RN) Monitor Mode: External US (Lisbeth Ryan, RN) FHR Baseline Rate : 125 (Lisbeth Ryan, RN) Variability: Moderate 6-25 bpm (Lisbeth Ryan, RN) Accelerations: None (Lisbeth Ryan, RN) Decelerations: Early (Lisbeth Ryan, RN) Pitocin (milliunit): Pitocin Remains (milliunits) @ 20 (Lisbeth Ryan RN) Datetime: 12/19/2016 14:13 NBP Sys/Marysol/Mean (mmHg): 170 (QS system process) : 78 (QS system process) : 112 (QS system process) Pulse: 125 (QS system process) LaborFlag: Antepartum (QS system process) Datetime: 12/19/2016 14:12 I/O Interventions: Shrestha Discontinued (Lisbeth Ryan, RN) Datetime: 12/19/2016 14:11 Pushing: Coached on Pushing; Urge to Push (Lisbeth Ryan RN) Pushing Position: Pushing with Contractions (Lisbeth Ryan RN) Pushing Progress: Descent with Pushing (Lisbeth Ryan RN) Preparation for Delivery: Setup for Delivery (Lisbeth Ryan RN) Datetime: 12/19/2016 14:09 Dilatation (cm): 10.0 (Lisbeth Ryan, RN) Effacement (%): 100 (Lisbeth Ryan, RN) Station: 2 (Lisbeth Ryan, RN) Exam by: H Bill CNM (Lisbeth Ryan, RN) Datetime: 12/19/2016 14:07 Communication Comments: H. Bill CNM at bedside (Lisbeth Ryan, RN) Datetime: 12/19/2016 14:06 Monitor Interventions for FHR: Ultrasound Adjusted (Lisbeth Ryan, RN) Communication: RN at Bedside (Lisbeth Ryan, RN) Datetime: 12/19/2016 14:00 NBP Sys/Marysol/Mean (mmHg): 133 (QS system process) : 74 (QS system process) : 96 (QS system process) Pulse: 88 (QS system process) Monitor Mode: External (Lisbeth Ryan RN) Frequency (min): 2-3 (Lisbeth Ryan RN) Quality: Moderate (Lisbeth Ryan RN) Duration (sec): 50-90 (Lisbeth Ryan RN) Resting Tone (Palpate): Relaxed (Lisbeth Ryan RN) Monitor Mode: External US (Lisbeth Ryan RN) FHR Baseline Rate : 125 (Lisbeth Ryan RN) Variability: Moderate 6-25 bpm (Lisbeth Ryan RN) Accelerations: 10X10 (Lisbeth Ryan RN) Decelerations: Early (Lisbeth Ryan RN) Pitocin (milliunit): Pitocin Remains (milliunits) @ 20 (Lisbeth Ryan RN) LaborFlag: Antepartum (QS system process) Datetime: 12/19/2016 13:45 Monitor Mode: External (Lisbeth Ryan RN) Frequency (min): 2-3 (Lisbeth Ryan RN) Quality: Moderate (Lisbeth Ryan RN) Duration (sec): 50-90 (Lisbeth Ryan RN) Resting Tone (Palpate): Relaxed (Lisbeth Ryan RN) Monitor Mode: External US (Lisbeth Ryan RN) FHR Baseline Rate : 115 (Lisbeth Ryan RN) Variability: Moderate 6-25 bpm (Lisbeth Ryan, RN) Accelerations: 15X15 (Lisbeth Ryan, RN) Decelerations: None (Lisbeth Ryan, RN) Pitocin (milliunit): Pitocin Remains (milliunits) @ 20 (Lisbeth Ryan, RN) Datetime: 12/19/2016 13:44 Patient Position/Activity: Left Extreme; Peanut Ball (Lisbethnéstor Ryan, RN) Datetime: 12/19/2016 13:43 NBP Sys/Marysol/Mean (mmHg): 125 (QS system process) : 78 (QS system process) : 98 (QS system process) Pulse: 77 (QS system process) LaborFlag: Antepartum (QS system process) Datetime: 12/19/2016 13:30 Monitor Mode: External (Lisbeth Ryan, RN) Frequency (min): 2-3 (Lisbeth Ryan, RN) Quality: Moderate (Lisbeth Ryan, RN) Duration (sec): 50-90 (Lisbeth Ryan, RN) Resting Tone (Palpate): Relaxed (Lisbeth Ryan, RN) Monitor Mode: External US (Lisbeth Ryan, RN) FHR Baseline Rate : 115 (Lisbeth Ryan, RN) Variability: Moderate 6-25 bpm (Lisbethnéstor Ryan, RN) Accelerations: 15X15 (Lisbethnéstor Ryan, RN) Decelerations: None (Lisbeth Ryan, RN) Pitocin (milliunit): Pitocin Remains (milliunits) @ 20 (Lisbeth Ryan, RN) Datetime: 12/19/2016 13:27 NBP Sys/Marysol/Mean (mmHg): 123 (QS system process) : 67 (QS system process) : 88 (QS system process) Pulse: 91 (QS system process) LaborFlag: Antepartum (QS system process) Datetime: 12/19/2016 13:15 NBP Sys/Marysol/Mean (mmHg): 116 (QS system process) : 69 (QS system process) : 87 (QS system process) Pulse: 85 (QS system process) Monitor Mode: External (Lisbeth Ryan RN) Frequency (min): 2-2.5 (Lisbeth Ryan RN) Quality: Moderate (Lisbeth Ryan RN) Duration (sec): 50-90 (Lisbeth Ryan RN) Resting Tone (Palpate): Relaxed (Lisbeth Ryan RN) Monitor Mode: External US (Lisbeth Ryan RN) FHR Baseline Rate : 115 (Lisbeth Ryan RN) Variability: Moderate 6-25 bpm (Lisbeth Ryan RN) Accelerations: 15X15 (Lisbeth Ryan RN) Decelerations: None (Lisbeth Ryan RN) Pitocin (milliunit): Pitocin Remains (milliunits) @ 20 (Lisbeth Ryan RN) LaborFlag: Antepartum (QS system process) Datetime: 12/19/2016 13:07 Patient Position/Activity: Left Lateral (Lisbeth Ryan, RN) Datetime: 12/19/2016 13:06 Monitor Interventions for FHR: Ultrasound Adjusted (Lisbeth Ryan, RN) Patient Position/Activity: Right Lateral (Lisbeth Ryan, RN) Communication: RN at Bedside (Lisbeth Ryan, RN) Datetime: 12/19/2016 13:00 Monitor Mode: External; Palpation (Lisbeth Ryan RN) Frequency (min): 1.5-3 (Lisbeth Ryan, RN) Quality: Moderate (Lisbeth Ryan, RN) Duration (sec): 50-90 (Lisbeth Ryan, RN) Resting Tone (Palpate): Relaxed (Lisbeth Ryan, RN) Monitor Mode: External US (Lisbeth Ryan, RN) FHR Baseline Rate : 120 (Lisbeth Ryan, RN) Variability: Moderate 6-25 bpm (Lisbethnéstor Ryan, RN) Accelerations: 15X15 (Lisbeth Ryan, RN) Decelerations: None (Lisbeth Ryan, RN) Pitocin (milliunit): Pitocin Remains (milliunits) @ 20 (Lisbethnéstor Ryan, RN) Datetime: 12/19/2016 12:58 NBP Sys/Marysol/Mean (mmHg): 127 (QS system process) : 81 (QS system process) : 100 (QS system process) Pulse: 84 (QS system process) LaborFlag: Antepartum (QS system process) Datetime: 12/19/2016 12:45 Monitor Mode: External (Lisbeth Ryan RN) Frequency (min): 2-3 (Lisbeth Ryan RN) Quality: Mild/Moderate (Lisbeth Ryan RN) Duration (sec): 50-90 (Lisbeth Ryan RN) Resting Tone (Palpate): Relaxed (Lisbeth Ryan RN) Monitor Mode: External US (Lisbeth Ryan RN) FHR Baseline Rate : 125 (Lisbeth Ryan RN) Variability: Moderate 6-25 bpm (Lisbeth Ryan RN) Accelerations: 15X15 (Lisbeth Ryan, RN) Decelerations: None (Lisbeth Ryan RN) Pitocin (milliunit): Pitocin Remains (milliunits) @ 20 (Lisbeth Ryan RN) Datetime: 12/19/2016 12:44 NBP Sys/Marysol/Mean (mmHg): 126 (QS system process) : 80 (QS system process) : 97 (QS system process) Pulse: 81 (QS system process) LaborFlag: Antepartum (QS system process) Datetime: 12/19/2016 12:31 Patient Position/Activity: Left Lateral (Lisbeth Ryan RN) Datetime: 12/19/2016 12:30 Monitor Mode: External (Lisbeth Ryan RN) Frequency (min): 1.5-3 (Lisbeth Ryan RN) Quality: Mild/Moderate (Lisbeth Ryan RN) Duration (sec): 50-90 (Lisbeth Ryan RN) Resting Tone (Palpate): Relaxed (Lisbeth Ryan RN) Monitor Mode: External US (Lisbeth Ryan RN) FHR Baseline Rate : 125 (Lisbeth Ryan RN) Variability: Moderate 6-25 bpm (Lisbeth Ryan RN) Accelerations: 15X15 (Lisbeth Ryan RN) Decelerations: None (Lisbeth Ryan RN) Pitocin (milliunit): Pitocin Remains (milliunits) @ 20 (Lisbeth Ryan RN) Datetime: 12/19/2016 12:27 Respirations: 16 (Lisbeth Ryan RN) Temperature (F): 98.3 (Lisbeth Ryan RN) Temperature (C): 36.8 (QS system process) Bedside Blood Glucose: 75 (QS system process) Pain Scale: 2 (Lisbeth Ryan RN) Pain Presence: Intermittent (Lisbeth Ryan RN) Pain Type: Contraction (Lisbeth Ryan RN) Pain Location: Back (Lisbeth Ryan RN) Pain Coping: Talking Through Contractions (Lisbeth Ryan RN) LaborFlag: Antepartum (QS system process) Datetime: 12/19/2016 12:16 Dilatation (cm): 4.0 (Lisbeth Ryan RN) Effacement (%): 80 (Lisbeth Ryan RN) Station: -1 (Lisbeth Ryan RN) Exam by: Pop Khan CNM (Lisbeth Ryan RN) Communication Comments: Pop Khan CNM on unit (Lisbeth Ryan, RN) Datetime: 12/19/2016 12:15 Monitor Mode: External (Lisbeth Ryan RN) Frequency (min): 2-3 (Lisbeth Ryan RN) Quality: Mild/Moderate (Lisbeth Ryan RN) Duration (sec): 50-80 (Lisbeth Ryan RN) Resting Tone (Palpate): Relaxed (Lisbeth Ryan RN) Monitor Mode: External US (Lisbeth Ryan RN) FHR Baseline Rate : 120 (Lisbeth Ryan RN) Variability: Moderate 6-25 bpm (Lisbeth Ryan RN) Accelerations: 15X15 (Lisbeth Ryan, RN) Decelerations: None (Lisbeth Ryan, RN) Pitocin (milliunit): Pitocin Remains (milliunits) @ 20 (Lisbeth Ryan RN) Datetime: 12/19/2016 12:14 NBP Sys/Marysol/Mean (mmHg): 120 (QS system process) : 70 (QS system process) : 90 (QS system process) Pulse: 74 (QS system process) LaborFlag: Antepartum (QS system process) Datetime: 12/19/2016 12:10 Patient Care Comments: LR returned to 125ml/hr (Lisbeth Ryan, RN) Datetime: 12/19/2016 12:08 NBP Sys/Marysol/Mean (mmHg): 105 (QS system process) : 57 (QS system process) : 76 (QS system process) Pulse: 72 (QS system process) LaborFlag: Antepartum (QS system process) Datetime: 12/19/2016 12:05 NBP Sys/Marysol/Mean (mmHg): 123 (QS system process) : 81 (QS system process) : 96 (QS system process) Pulse: 82 (QS system process) LaborFlag: Antepartum (QS system process) Datetime: 12/19/2016 12:04 NBP Sys/Marysol/Mean (mmHg): 123 (QS system process) : 76 (QS system process) : 94 (QS system process) Pulse: 73 (QS system process) LaborFlag: Antepartum (QS system process) Datetime: 12/19/2016 12:03 NBP Sys/Marysol/Mean (mmHg): 124 (QS system process) : 87 (QS system process) : 100 (QS system process) Pulse: 87 (QS system process) Epidural Procedure Other: Pump Started (Lisbeth Ryan RN) Anesthesia Level Check: T10- Umbilicus (Lisbeth Ryan RN) LaborFlag: Antepartum (QS system process) Datetime: 12/19/2016 12:01 NBP Sys/Marysol/Mean (mmHg): 132 (QS system process) : 82 (QS system process) : 100 (QS system process) Pulse: 85 (QS system process) Comments: pt sitting for epidural, unable to determine (Lisbeth Ryan RN) LaborFlag: Antepartum (QS system process) Datetime: 12/19/2016 12:00 NBP Sys/Marysol/Mean (mmHg): 132 (QS system process) : 82 (QS system process) : 102 (QS system process) Pulse: 83 (QS system process) Pitocin (milliunit): Pitocin Remains (milliunits) @ 20 (Lisbeth Ryan RN) LaborFlag: Antepartum (QS system process) Datetime: 12/19/2016 11:59 NBP Sys/Marysol/Mean (mmHg): 132 (QS system process) : 84 (QS system process) : 101 (QS system process) Pulse: 77 (QS system process) Antibiotics: Penicillin IV (Units) @ 2.5 million (Lisbeth Ryan RN) LaborFlag: Antepartum (QS system process) Datetime: 12/19/2016 11:58 Epidural Procedure: Cath Placed; Test Dose; Loading Dose (Lisbeth Ryan RN) Datetime: 12/19/2016 11:51 Procedure Verify: Correct Patient Identity; Correct Side and Site are Marked; Accurate Procedure Consent Form; Agreement on Procedure to be Done; Correct Patient Position (Lisbeth Ryan RN) Epidural Positioning: Sitting (Lisbeth Ryan RN) Anesthesia Comments: Dr Fair at bedside (Lisbeth Ryan RN) Datetime: 12/19/2016 11:50 NBP Sys/Marysol/Mean (mmHg): 137 (QS system process) : 80 (QS system process) : 100 (QS system process) Pulse: 80 (QS system process) IV/Blood Work: New IV Bag Hung (TARIQ Jordan LaborFlag: Antepartum (QS system process) Datetime: 12/19/2016 11:49 Pulse: 76 (QS system process) SpO2 (%): 100 (QS system process) LaborFlag: Antepartum (QS system process) Datetime: 12/19/2016 11:45 Comments: unable to determine pt up to BR (Lisbeth Ryan RN) Membrane Status: Ruptured (Lisbeth Ryan RN) Membranes Rupture Method: Spontaneous (Lisbeth Ryan, RN) Amniotic Fluid Color: Clear (Lisbeth Ryan, RN) Amniotic Fluid Amount: Moderate (Lisbeth Ryan, RN) Amniotic Fluid Odor: Normal (Lisbeth Ryan, RN) Pitocin (milliunit): Pitocin Remains (milliunits) @ 20 (Lisbeth Ryan, RN) Datetime: 12/19/2016 11:30 Monitor Mode: External (Lisbeth Ryan RN) Frequency (min): 1-3 (Lisbeth Ryan RN) Quality: Mild/Moderate (Lisbeth Ryan RN) Duration (sec): 50-80 (Lisbeth Ryan RN) Resting Tone (Palpate): Relaxed (Lisbeth Ryan RN) Monitor Mode: External US (Lisbeth Ryan RN) FHR Baseline Rate : 125 (Lisbeth Ryan RN) Variability: Moderate 6-25 bpm (Lisbeth Ryan RN) Accelerations: 15X15 (Lisbeth Ryan, RN) Decelerations: None (Lisbeth Ryan, RN) Pitocin (milliunit): Pitocin Remains (milliunits) @ 20 (Lisbeth Ryan RN) Datetime: 12/19/2016 11:28 NBP Sys/Marysol/Mean (mmHg): 129 (QS system process) : 73 (QS system process) : 95 (QS system process) Pulse: 81 (QS system process) LaborFlag: Antepartum (QS system process) Datetime: 12/19/2016 11:15 Monitor Mode: External (Lisbeth Ryan RN) Frequency (min): 1-3 (Lisbeth Ryan RN) Quality: Mild/Moderate (Lisbeth Ryan RN) Duration (sec): 50-80 (Lisbeth Ryan RN) Resting Tone (Palpate): Relaxed (Lisbeth Ryan RN) Monitor Mode: External US (Lisbeth Ryan RN) FHR Baseline Rate : 130 (Lisbeth Ryan RN) Variability: Moderate 6-25 bpm (Lisbeth Ryan RN) Accelerations: 15X15 (Lisbeth Ryan RN) Decelerations: None (Lisbeth Ryan RN) Pitocin (milliunit): Pitocin Remains (milliunits) @ 20 (Lisbeth Ryan RN) Datetime: 12/19/2016 11:13 NBP Sys/Marysol/Mean (mmHg): 121 (QS system process) : 79 (QS system process) : 96 (QS system process) Pulse: 92 (QS system process) LaborFlag: Antepartum (QS system process) Datetime: 12/19/2016 11:09 Pain Presence: Intermittent (Lisbeth Ryan RN) Pain Type: Contraction (Lisbeth Ryan RN) Pain Location: Abdomen (Lisbeth Ryan RN) Pain Coping: Requesting Pain Medication or Epidural (Lisbeth Ryan RN) IV/Blood Work: IV Bolus Started (Lisbeth Ryan RN) Anesthesia Plans: Epidural (Lisbeth Ryan RN) LaborFlag: Antepartum (QS system process) Datetime: 12/19/2016 11:00 Monitor Mode: External (Lisbeth Ryan RN) Frequency (min): 1-3 (Lisbeth Ryan RN) Quality: Mild/Moderate (Lisbeth Ryan RN) Duration (sec): 50-90 (Lisbeth Ryan RN) Resting Tone (Palpate): Relaxed (Lisbeth Ryan RN) Monitor Mode: External US (Lisbeth Ryan RN) FHR Baseline Rate : 130 (Lisbeth Ryan, RN) Variability: Moderate 6-25 bpm (Lisbeth Ryan, RN) Accelerations: 15X15 (Lisbeth Ryan, RN) Decelerations: None (Lisbeth Ryan, RN) Pitocin (milliunit): Pitocin Remains (milliunits) @ 20 (Lisbeth Ryan, RN) Datetime: 12/19/2016 10:58 NBP Sys/Marysol/Mean (mmHg): 115 (QS system process) : 68 (QS system process) : 86 (QS system process) Pulse: 86 (QS system process) LaborFlag: Antepartum (QS system process) Datetime: 12/19/2016 10:56 IV/Blood Work: New IV Bag Hung (Lisbeth Ryan, RN) Datetime: 12/19/2016 10:45 Monitor Mode: External (Lisbeth Ryan, RN) Frequency (min): 2-3 (Lisbeth Ryan, RN) Quality: Mild/Moderate (Lisbeth Ryan, RN) Duration (sec): 80-90 (Lisbeth Ryan, RN) Resting Tone (Palpate): Relaxed (Lisbeth Ryan, RN) Monitor Mode: External US (Lisbeth Ryan, RN) FHR Baseline Rate : 135 (Lisbeth Ryan, RN) Variability: Moderate 6-25 bpm (Lisbethnéstor Ryan, RN) Accelerations: 15X15 (Lisbethnéstor Ryan, RN) Decelerations: None (Lisbeth Ryan, RN) Pitocin (milliunit): Pitocin Remains (milliunits) @ 20 (Lisbeth Ryan, RN) Datetime: 12/19/2016 10:44 Monitor Interventions for UA: [place] Adjusted (Lisbeth Ryan, RN) Datetime: 12/19/2016 10:42 Patient Position/Activity: Birthing Ball (Lisbeth Ryan, RN) Datetime: 12/19/2016 10:37 I/O Interventions: Up to BR (Lisbeth Ryan, RN) Datetime: 12/19/2016 10:30 Monitor Mode: External (Lisbeth Ryan RN) Resting Tone (Palpate): Relaxed (Lisbeth Ryan RN) Contraction Comments: contractions not tracing on monitor (Lisbeth Ryan RN) Monitor Mode: External US (Lisbeth Ryan RN) FHR Baseline Rate : 135 (Lisbeth Ryan RN) Variability: Moderate 6-25 bpm (Lisbeth Ryan, RN) Accelerations: 15X15 (Lisbeth Ryan RN) Decelerations: None (Lisbeth Ryan RN) Pitocin (milliunit): Pitocin Remains (milliunits) @ 20 (Lisbeth Ryan RN) Datetime: 12/19/2016 10:28 NBP Sys/Marysol/Mean (mmHg): 153 (QS system process) : 91 (QS system process) : 115 (QS system process) Pulse: 88 (QS system process) LaborFlag: Antepartum (QS system process) Datetime: 12/19/2016 10:15 Monitor Mode: External (Lisbeth Ryan RN) Frequency (min): 2-3 (Lisbeth Ryan RN) Quality: Mild/Moderate (Lisbeth Ryan RN) Duration (sec): 50-70 (Lisbeth Ryan RN) Resting Tone (Palpate): Relaxed (Lisbeth Ryan RN) Monitor Mode: External US (Lisbeth Ryan RN) FHR Baseline Rate : 135 (Lisbeth Ryan RN) Variability: Moderate 6-25 bpm (Lisbeth Ryan RN) Accelerations: 15X15 (Lisbeht Ryan RN) Decelerations: None (Lisbeth Ryan RN) Pitocin (milliunit): Pitocin Remains (milliunits) @ 20 (Lisbeth Ryan RN) Datetime: 12/19/2016 10:13 NBP Sys/Marysol/Mean (mmHg): 123 (QS system process) : 74 (QS system process) : 94 (QS system process) Pulse: 80 (QS system process) LaborFlag: Antepartum (QS system process) Datetime: 12/19/2016 10:00 Monitor Mode: External (Lisbeth Ryan RN) Frequency (min): 2-4 (Lisbeth Ryan RN) Quality: Mild/Moderate (Lisbeth Ryan RN) Duration (sec): 50-70 (Lisbeth Ryan RN) Resting Tone (Palpate): Relaxed (Lisbeth Ryan RN) Monitor Mode: External US (Lisbeth Ryan RN) FHR Baseline Rate : 135 (Lisbeth Ryan RN) Variability: Moderate 6-25 bpm (Lisbeth Ryan RN) Accelerations: 15X15 (Lisbeth Ryan RN) Decelerations: None (Lisbeth Ryan RN) Pitocin (milliunit): Pitocin Increased to (milliunits) @ 20 (Lisbeth Ryan RN) Datetime: 12/19/2016 09:57 NBP Sys/Amrysol/Mean (mmHg): 124 (QS system process) : 70 (QS system process) : 92 (QS system process) Pulse: 94 (QS system process) LaborFlag: Antepartum (QS system process) Datetime: 12/19/2016 09:45 Monitor Mode: External (Lisbeth Ryan RN) Frequency (min): 3-4 (Lisbeth Ryan RN) Quality: Mild/Moderate (Lisbeth Ryan RN) Duration (sec): 50-70 (Lisbeth Ryan RN) Resting Tone (Palpate): Relaxed (Lisbeth Ryan RN) Monitor Mode: External US (Lisbeth Ryan RN) FHR Baseline Rate : 135 (Lisbeth Ryan RN) Variability: Moderate 6-25 bpm (Lisbeth Ryan RN) Accelerations: 15X15 (Lisbeth Ryan RN) Decelerations: None (Lisbeth Ryan RN) Pitocin (milliunit): Pitocin Increased to (milliunits) @ 18 (Lisbeth Ryan RN) Datetime: 12/19/2016 09:43 NBP Sys/Marysol/Mean (mmHg): 128 (QS system process) : 70 (QS system process) : 91 (QS system process) Pulse: 86 (QS system process) LaborFlag: Antepartum (QS system process) Datetime: 12/19/2016 09:30 Monitor Mode: External; Palpation (Lisbeth Ryan RN) Frequency (min): x1 (Lisbeth Ryan RN) Quality: Mild/Moderate (Lisbeth Ryan RN) Duration (sec): 50 (Lisbeth Ryan RN) Resting Tone (Palpate): Relaxed (Lisbeth Ryan RN) Monitor Mode: External US (Lisbeth Ryan RN) FHR Baseline Rate : 135 (Lisbeth Ryan RN) Variability: Moderate 6-25 bpm (Lisbeth Ryan RN) Accelerations: 15X15 (Lisbeth Ryan RN) Decelerations: None (Lisbeth Ryan RN) Pitocin (milliunit): Pitocin Increased to (milliunits) @ 16 (Lisbeth Ryan RN) Datetime: 12/19/2016 09:23 I/O Interventions: Up to BR (Lisbeth Connor, RN) Datetime: 12/19/2016 09:15 Monitor Mode: External (Lisbeth Ryan, RN) Frequency (min): 2-3 (Lisbeth Ryan, RN) Quality: Mild (Lisbeth Ryan, RN) Duration (sec): 40-80 (Lisbeth Ryan, RN) Resting Tone (Palpate): Relaxed (Lisbeth Ryan, RN) Monitor Mode: External US (Lisbeth Ryan, RN) FHR Baseline Rate : 135 (Lisbeth Ryan, RN) Variability: Moderate 6-25 bpm (Lisbeth Ryan, RN) Accelerations: 15X15 (Lisbeth Ryan, RN) Decelerations: None (Lisbeth Ryan, RN) Pitocin (milliunit): Pitocin Increased to (milliunits) @ 14 (Lisbeth Ryan, RN) Datetime: 12/19/2016 09:12 NBP Sys/Marysol/Mean (mmHg): 134 (QS system process) : 81 (QS system process) : 100 (QS system process) Pulse: 95 (QS system process) LaborFlag: Antepartum (QS system process) Datetime: 12/19/2016 09:06 Comments: tracing maternal HR (Lisbeth Ryan, RN) Datetime: 12/19/2016 09:05 Pulse: 99 (QS system process) SpO2 (%): 97 (QS system process) LaborFlag: Antepartum (QS system process) Datetime: 12/19/2016 09:04 Monitor Interventions for FHR: Ultrasound Adjusted (Lisbeth Ryan RN) Communication: RN at Bedside (Lisbeth Ryan RN) Datetime: 12/19/2016 09:00 Monitor Mode: External (Lisbeth Ryan RN) Frequency (min): 3-6 (Lisbeth Ryan RN) Quality: Mild (Lisbeth Ryan RN) Duration (sec): 40-60 (Lisbeth Ryan RN) Resting Tone (Palpate): Relaxed (Lisbeth Ryan, RN) Monitor Mode: External US (Lisbeth Ryan RN) FHR Baseline Rate : 135 (Lisbeth Ryan RN) Variability: Moderate 6-25 bpm (Lisbeth Ryan, RN) Accelerations: 15X15 (Lisbeth Ryan, RN) Decelerations: None (Lisbeth Ryan, RN) Pitocin (milliunit): Pitocin Increased to (milliunits) @ 12 (Lisbeth Ryan RN) Datetime: 12/19/2016 08:58 NBP Sys/Marysol/Mean (mmHg): 128 (QS system process) : 78 (QS system process) : 97 (QS system process) Pulse: 84 (QS system process) LaborFlag: Antepartum (QS system process) Datetime: 12/19/2016 08:48 Bedside Blood Glucose: 82 (QS system process) LaborFlag: Antepartum (QS system process) Datetime: 12/19/2016 08:45 Monitor Mode: External (Lisbeth Ryan RN) Frequency (min): x2 (Lisbeth Ryan RN) Quality: Mild (Lisbeth Ryan RN) Duration (sec): 50-80 (Lisbeth Ryan RN) Resting Tone (Palpate): Relaxed (Lisbeth Ryan RN) Monitor Mode: External US (Lisbeth Ryan RN) FHR Baseline Rate : 145 (Lisbeth Ryan RN) Variability: Moderate 6-25 bpm (Lisbeth Ryan RN) Accelerations: 15X15 (Lisbeth Ryan RN) Decelerations: None (Lisbeth Ryan RN) Pitocin (milliunit): Pitocin Increased to (milliunits) @ 10 (Lisbeth Ryan RN) Datetime: 12/19/2016 08:43 NBP Sys/Marysol/Mean (mmHg): 130 (QS system process) : 81 (QS system process) : 99 (QS system process) Pulse: 98 (QS system process) LaborFlag: Antepartum (QS system process) Datetime: 12/19/2016 08:30 Monitor Mode: External (Lisbeth Ryan RN) Frequency (min): x1 (Lisbeth Ryan RN) Quality: Mild (Lisbeth Ryan RN) Duration (sec): 80 (Lisbeth Ryan RN) Resting Tone (Palpate): Relaxed (Lisbeth Ryan RN) Monitor Mode: External US (Lisbeth Ryan RN) FHR Baseline Rate : 145 (Lisbeth Ryan RN) Variability: Moderate 6-25 bpm (Lisbeth Ryan RN) Accelerations: 15X15 (Lisbeth Ryan RN) Decelerations: None (Lisbeth Ryan RN) Pitocin (milliunit): Pitocin Increased to (milliunits) @ 8 (Sanju Enriquez RN) Datetime: 12/19/2016 08:29 NBP Sys/Marysol/Mean (mmHg): 136 (QS system process) : 82 (QS system process) : 103 (QS system process) Pulse: 81 (QS system process) LaborFlag: Antepartum (QS system process) Datetime: 12/19/2016 08:24 Comfort Measures: Rocking Chair (Lisbeth Ryan, RN) Datetime: 12/19/2016 08:15 Monitor Mode: External (Lisbeth Ryan, RN) Frequency (min): x2 (Lisbeth Ryan RN) Quality: Mild (Lisbeth Ryan RN) Duration (sec): 40-90 (Lisbeth Ryan RN) Resting Tone (Palpate): Relaxed (Lisbeth Ryan RN) Monitor Mode: External US (Sanju Erniquez RN) FHR Baseline Rate : 145 (Sanju Enriquez RN) Variability: Moderate 6-25 bpm (Sanju Enriquez RN) Accelerations: 15X15 (Sanju Enriquez RN) Decelerations: None (Sanju Enriquez RN) Pitocin (milliunit): Pitocin Increased to (milliunits) @ 6 (Sanju Enriquez RN) I/O Interventions: Up to BR (Sanju Enriquez RN) Datetime: 12/19/2016 08:13 NBP Sys/Marysol/Mean (mmHg): 135 (QS system process) : 84 (QS system process) : 105 (QS system process) Pulse: 91 (QS system process) LaborFlag: Antepartum (QS system process) Datetime: 12/19/2016 08:00 Monitor Mode: External (Sanju Zoe, RN) Frequency (min): x1 (Sanju Zoe, RN) Quality: Mild (Sanju Zoe, RN) Duration (sec): 90 (Sanju Zoe, RN) Resting Tone (Palpate): Relaxed (Sanju Enriquez, RN) Monitor Mode: External US (Sanju Enriquez, RN) FHR Baseline Rate : 145 (Sanju Zoe, RN) Variability: Moderate 6-25 bpm (Sanju Zoe, RN) Accelerations: 15X15 (Sanju Zoe, RN) Decelerations: None (Sanju Enriquez, RN) Pitocin (milliunit): Pitocin Increased to (milliunits) @ 4 (Sanju Zoe, RN) Datetime: 12/19/2016 07:45 Monitor Mode: External (Sanju Enriquez, RN) Frequency (min): None (Sanju Enriquez, RN) Quality: Mild (Sanju Enriquez, RN) Resting Tone (Palpate): Relaxed (Sanju Enriquez, RN) Monitor Mode: External US (Sanju Enriquez, RN) FHR Baseline Rate : 145 (Sanju Enriquez, RN) Variability: Moderate 6-25 bpm (Sanju Zoe, RN) Accelerations: 15X15 (Sanju Zoe, RN) Decelerations: None (Sanju Enriquez, RN) Pitocin (milliunit): Pitocin Started (milliunits) @ 2; Pitocin 20 Units in 1000ml NS (Sanju Enriquez, RN) Antibiotics: Penicillin IV (Units) @ (Annotations: 5million) (Lisbeth Ryan RN) Datetime: 12/19/2016 07:31 I/O Interventions: Up to BR (Lisbeth Ryan, RN) Datetime: 12/19/2016 07:30 Monitor Mode: External (Sanju Dongford, RN) Frequency (min): Irregular (Sanju Zoe, RN) Quality: Mild (Sanju Zoe, RN) Duration (sec): 40-110 (Sanju Zoe, RN) Resting Tone (Palpate): Relaxed (Sanju Enriquez, RN) Monitor Mode: External US (Sanju Enriquez, RN) FHR Baseline Rate : 145 (Sanju Zoe, RN) Variability: Moderate 6-25 bpm (Sanju Zoe, RN) Accelerations: 15X15 (Sanju Zoe, RN) Decelerations: None (Sanju Zoe, RN) Datetime: 12/19/2016 07:28 Dilatation (cm): 2.5 (Lisbeth Ryan, RN) Effacement (%): 80 (Lisbeth Ryan, RN) Station: -1 (Lisbeth Ryan, RN) Exam by: Rochelle Ryan RN (Lisbeth Ryan, RN) Datetime: 12/19/2016 07:25 IV/Blood Work: IV Started; IV Bolus Started (Lisbeth Ryan, RN) Datetime: 12/19/2016 07:06 Comments: patienting sitting straight up in bed (Agueda Jones, RN) Datetime: 12/19/2016 07:00 Stage of : Antepartum (Agueda Jones RN) Monitor Mode: External; Palpation (Agueda Jones RN) Frequency (min): none (Agueda Jones RN) Resting Tone (Palpate): Relaxed (Agueda Jones RN) Monitor Mode: External US (Agueda Jones RN) FHR Baseline Rate : 150 (Agueda Jones RN) Variability: Moderate 6-25 bpm (Agueda Jones RN) Accelerations: None (Agueda Jones RN) Decelerations: None (Agueda Jones RN) Communication: RN at Bedside; RN Reviewed Strip (Agueda Jones RN)
[2016-12-19] MEDS: IBUPROFEN 800 MG TABLET PO SCH (21:59)
[2016-12-20] MEDS: IBUPROFEN 800 MG TABLET PO SCH ×3 (05:49→21:07)
--- NOTE | 2016-12-20 06:00 | L&D Current Admission ---
Current Admit Datetime Report Generated by CPN: 12/20/2016 06:00 ADMISSION INFORMATION Current Admit Date/Time: 12/19/2016 06:50 (12/19/2016 06:50:Berenice Pride RN) Reason for Admission: Induction of Labor (12/19/2016 06:50:Berenice Pride RN) Chief Complaint: Scheduled Induction of Labor (12/19/2016 06:54:Agueda Jones RN) EGA per Dates: 38.0 (12/19/2016 06:50:QS system process) Method of Arrival: Ambulatory (12/19/2016 06:50:Berenice Pride RN) Admitted From: Home (12/19/2016 06:50:Berenice Pride RN) Reason for Induction: Gestational Hypertension; Maternal Diabetes (12/19/2016 06:50:Berenice Pride RN) Records Available: Yes (12/19/2016 06:50:Berenice Pride RN) General Admission Information: Reviewed; Updated; Confirmed (12/19/2016 06:50:Berenice Pride RN) General Admission Reviewed By: Mike Jones RN (12/19/2016 06:50:Berenice Pride RN) BELONGINGS/ADVANCED DIRECTIVES Other Belongings: See [facility] belongings form (12/19/2016 06:50:Berenice Pride RN) Disposition of Belongings: Kept with Patient (12/19/2016 06:50:Lisbeth Ryan RN) Advance Direct for Healthcare: No, and Wants No Information (12/19/2016 06:50:Lisbeth Ryan RN) Durable Power of Music Promoter: No (12/19/2016 06:50:Lisbeth Ryan RN) Living Will: No (12/19/2016 06:50:Lisbeth Ryan RN) Organ Donor: No (12/19/2016 06:50:Lisbeth Ryan RN) Pt Rights Information Given: Yes (12/19/2016 06:50:Lisbeth Ryan RN) Pt Understands Pt Rights: Yes (12/19/2016 06:50:Lisbeth Ryan RN) LEARNING ASSESSMENT Knowledge Level: Understands L_D Process; Understands Care Activities; Had Pre-Hospital Education; Understands Diagnosis (12/19/2016 06:50:Lisbeth Ryan RN) Barriers to Learning: None (12/19/2016 06:50:Lisbeth Ryan RN) Learning Readiness: Motivated (12/19/2016 06:50:Lisbeth Ryan RN) Learns Best By: 1 to 1 Instruction (12/19/2016 06:50:Lisbeth Ryna RN) DOMESTIC VIOLANCE SCREENING Dom Viol Threatened/Hurt: No (12/19/2016 06:50:Lisbeth Ryan RN) Hx of Abuse/Neglect past 2yrs: No (12/19/2016 06:50:Lisbeth Ryan RN) Feel Unsafe Going Home: No (12/19/2016 06:50:Lisbeth Ryan RN) Addt'l Observ Indicating Abuse: No (12/19/2016 06:50:Lisbeth Ryan RN) Reason Unable to Complete Screen: N/A, Screen Completed (12/19/2016 06:50:Lisbeth Ryan RN) Considered Personal Harm/Suicide: No (12/19/2016 06:50:Lisbeth Ryan RN) NUTRITIONAL/FUNCTIONAL SCREENING Problem with Appetite >5 Days: No (12/19/2016 06:50:Lisbeth Ryan RN) Chew/Swallow Difficulties: No (12/19/2016 06:50:Lisbeth Ryan RN) Inappropriate Wt Gain/Loss: No (12/19/2016 06:50:Lisbeth Ryan RN) Presence Skin Breakdown/Ulcer: No (12/19/2016 06:50:Lisbeth Ryan RN) Special Diet: No (12/19/2016 06:50:Lisbeth Ryan RN) Pt Requests Liquid Center Assembler Visit: No (12/19/2016 06:50:Lisbeth Ryan RN) Hx of Any of the Following?: N/A (12/19/2016 06:50:Lisbeth Ryan RN) New Diagnosis of: Gest Diabetes (12/19/2016 06:50:Lisbeth Ryan RN) Requires Assist w/Ambulation: No (12/19/2016 06:50:Lisbeth Ryan RN) Uses Assist Device to Ambulate: No (12/19/2016 06:50:Lisbeth Ryan RN) Pt Requires Help w/ADL's: No (12/19/2016 06:50:Lisbeth Ryan RN)
--- NOTE | 2016-12-20 06:00 | L&D General Admission ---
General Admit Datetime Report Generated by CPN: 12/20/2016 06:00 INFORMATION Patient Age: 30 (05/01/2016 10:43:QS system process) EDC: 01/02/2017 00:00 (12/03/2016 17:32:Levy Rich RN) : 3 (12/03/2016 17:32:Lisbeth Ryan RN) Para: 2 (12/03/2016 17:32:Lisbeth Ryan RN) Term: 2 (12/03/2016 17:32:Lisbeth Ryan RN) : 0 (12/03/2016 17:32:Lisbeth Ryan RN) Spontaneous Abortions: 0 (12/03/2016 17:32:Lisbeth Ryan RN) Induced Abortions: 0 (12/03/2016 17:32:Lisbeth Ryan RN) Livin (12/03/2016 17:32:Lisbeth Ryan RN) Cesareans: 0 (12/03/2016 17:32:Lisbeth Ryan RN) VBACs: 0 (12/03/2016 17:32:Lisbeth Ryan RN) Ectopic: 0 (12/03/2016 17:32:Lisbeth Ryan RN) Multiple Births: 0 (12/03/2016 17:32:Lisbeth Ryan RN) Baby, Number in Womb: 1 (12/03/2016 17:32:Lisbeth Ryan RN) CARE Primary Rotor Plate Washer[facility] (12/03/2016 17:32:Lisbeth Ryan RN) Adequate Care: Yes (12/03/2016 17:32:SUE Trujillo) Prepregnancy Weight (lb): 150 (12/03/2016 17:32:Lisbeth Ryan RN) Prepregnancy Weight (kg): 68.2 (12/03/2016 17:32:QS system process) Height (in): 62 (12/19/2016 16:11:QS system process) ALLERGIES Medication Allergy: No (12/03/2016 17:32:Lisbeth Ryan RN) Medication Allergies: No Known Allergies (12/19/2016) (12/19/2016 06:54:QS system process) Latex Allergy: No Latex Allergies (12/03/2016 17:32:Lisbeth Ryan RN) Food Allergies: none (12/03/2016 17:32:Agueda Jones RN) Environmental Allergies: none (12/03/2016 17:32:Agueda Jones RN) COMMUNICATION Primary Language: Venezuelan (12/03/2016 17:32:Lisbeth Ryan RN) Medical Tx Preferred Language: Venezuelan (12/03/2016 17:32:Lisbeth Ryan RN) Communication Barrier(s): None (12/03/2016 17:32:SUE Trujillo) DEMOGRAPHICS Address: [address] [place] [id number] (05/06/2016 12:24:QS system process) Zipcode: [address] (05/01/2016 10:43:QS system process) Home (05/01/2016 10:43:QS system process) SSN: [id number] (05/01/2016 10:43:QS system process) Next of Kin Name: CHRISTIANO MONREAL (05/01/2016 10:43:QS system process) Next of Kin (05/01/2016 10:43:QS system process) Next of Kin Relationship: SPO (05/01/2016 10:43:QS system process) Date of : 1985 (05/01/2016 10:43:QS system process) Marital Status: (05/01/2016 10:43:QS system process) Sex: Female (05/01/2016 10:43:QS system process) Race: (05/01/2016 10:43:QS system process) Ethnicity: Non- or (05/01/2016 10:43:QS system process) Sikhism: Faith (12/03/2016 16:50:QS system process) DRUG AND ALCOHOL USE Alcohol: No (12/03/2016 17:32:Lisbeth Ryan RN) Cigarettes: Never Smoker. [id number] (12/03/2016 17:32:Lisbeth Ryan RN) Marijuana: No (12/03/2016 17:32:Lisbeth Ryan RN) Cocaine: No (12/03/2016 17:32:Lisbeth Ryan RN) Other Illicit Drugs: No (12/03/2016 17:32:Lisbeth Ryan RN) VACCINE HISTORY Influenza Vaccine: Yes (12/03/2016 17:32:Lisbeth Ryan RN) Influenza Date: 07/2016 (12/03/2016 17:32:Lisbeth Ryan RN) Pneumococcal Vaccine: No (12/03/2016 17:32:Lisbeth Ryan RN) Tetanus Vaccine: Yes (12/03/2016 17:32:Lisbeth Ryan RN) Tetanus Date: 09/2016 (12/03/2016 17:32:Lisbeth Ryan RN) Tdap Vaccine: Yes (12/03/2016 17:32:Lisbeth Ryan RN) Tdap Date: 09/2016 (12/03/2016 17:32:Lisbeth Ryan RN) Hepatitis B Vaccine: Yes (12/03/2016 17:32:Lisbeth Ryan RN) Recordist Chief: [facility] (12/03/2016 17:32:Lisbeth Ryan RN) Feeding Preference: Breast (12/03/2016 17:32:Lisbeth Ryan RN) Benefit of Breast Feed Discussed: Yes (12/03/2016 17:32:Lisbeth Ryan RN) Circumcision: N/A (12/03/2016 17:32:Lisbeth Ryan RN) Classes Attended: No (12/03/2016 17:32:Lisbeth Ryan RN) Tubal Ligation: No (12/03/2016 17:32:Lisbeth Ryan RN) Tubal Authorization Signed: N/A (12/03/2016 17:32:Lisbeth Ryan RN) Consent: N/A (12/03/2016 17:32:Lisbeth Ryan RN) Consent Signed: N/A (12/03/2016 17:32:Lisbeth Ryan RN) Pain Management Plans: Epidural (12/03/2016 17:32:Lisbeth Ryan RN) Plans for Labor and Delivery: None (12/03/2016 17:32:Lisbeth Ryan RN) Support Person: Christiano Monreal (12/03/2016 17:32:Lisbeth Ryan RN) Support Person Relationship: (12/03/2016 17:32:Lisbeth Ryan RN) Cultural/Spritual Practice: No (12/03/2016 17:32:Lisbeth Ryan RN) Spir/Cult Dietary Needs: No (12/03/2016 17:32:Lisbeth Ryan RN) LIVING SITUATION/DISCHARGE PLAN Living Arrangements: House (12/03/2016 17:32:Lisbeth Ryan RN) Adequate Access to:: Electric; Heat; Refrigeration; Plumbing/Running water; Phone; Transportation (12/03/2016 17:32:Lisbeth Ryan RN) WIC Program: No (12/03/2016 17:32:Lisbeth Ryan RN) Discharge Small Business Consultant Person: AUBREE (12/03/2016 17:32:Lisbeth Ryan RN) Person to Help after Discharge: [employer] (12/03/2016 17:32:Lisbeth Ryan RN) Currently Using Commun Resources: No (12/03/2016 17:32:Lisbeth Ryan RN) Outside Agency/Length Control Tester: N/A (12/03/2016 17:32:USE Trujillo) Car Seat for Discharge: No (12/03/2016 17:32:Lisbeth Ryan RN) Adoption Requested: No (12/03/2016 17:32:Lisbeth Ryan RN) Pt Contact w/infant Post : N/A (12/03/2016 17:32:Lisbeth Ryan RN) LABS Blood Type: A Positive (12/03/2016 17:32:Brooklyn Joseph RN) Antibody Screen: Negative (12/03/2016 17:32:Brooklyn Joseph RN) Rho(G) this : Not Applicable (12/03/2016 17:32:Brooklyn Joseph RN) Hemoglobin: 12.9 (12/19/2016 07:04:QS system process) Hematocrit: 38.0 (12/19/2016 07:04:QS system process) MCV: 89 (12/19/2016 07:04:QS system process) Group Beta Strep: Positive (12/03/2016 17:32:Brooklyn Joseph RN) Gonorrhea: Negative (12/03/2016 17:32:Brooklyn Joseph RN) Chlamydia: Negative (12/03/2016 17:32:Brooklyn Joseph RN) RPR/VDRL: Nonreactive (12/03/2016 17:32:Lisbeth Ryan RN) HIV Results: Negative (12/03/2016 17:32:Brooklyn Joseph RN) Hepatitis B: Negative (12/03/2016 17:32:Brooklyn Joseph RN) Rubella: Immune (12/03/2016 17:32:Brooklyn Joseph RN) OB/PREVIOUS HISTORY Previous Procedures: Ultrasound; NST (12/03/2016 17:32:Lisbeth Ryan RN) Current Procedures: Ultrasound; NST (12/03/2016 17:32:Lisbeth Ryan RN) History of Previous : No (12/03/2016 17:32:Lisbeth Ryan RN) History of Gestational Diabetes: Yes (12/03/2016 17:32:Lisbeth Ryan RN) History of PIH: Yes (12/03/2016 17:32:Lisbeth Ryan RN) History of Incompetent Cervix: No (12/03/2016 17:32:Lisbeth Ryan RN) History of Placenta Previa/Abrup: No (12/03/2016 17:32:Lisbeth Ryan RN) History of Macrosomia: No (12/03/2016 17:32:Lisbeth Ryan RN) History of IUGR: No (12/03/2016 17:32:Lisbeth Ryan RN) History of Hemorrhage: No (12/03/2016 17:32:Lisbeth Ryan RN) History of Loss/Stillborn: No (12/03/2016 17:32:Lisbeth Ryan RN) History of : No (12/03/2016 17:32:Lisbeth Ryan RN) History of D (Rh) Sensitization: No (12/03/2016 17:32:Lisbeth Ryan RN) History Recurrent Loss/Stillborn: No (12/03/2016 17:32:Lisbeth Ryan RN) History Depression/PP Depression: No (12/03/2016 17:32:Lisbeth Ryan RN) History of Uterine Anomaly/FLOWER: No (12/03/2016 17:32:Lisbeth Ryan RN) History of Infertility: Yes (12/03/2016 17:32:Lisbeth Ryan RN) History of ART Treatment: No (12/03/2016 17:32:Lisbeth Ryan RN) History of FLOWER: No (12/03/2016 17:32:Lisbeth Ryan RN) Comments Obstetrical History: G1: preeclampsia, IVF, 02/13/2011 G2: 05/12/2013 G3: current, GDM (12/03/2016 17:32:Lisbeth Ryan RN) MEDICAL HISTORY Med Hx Diabetes: Yes (12/03/2016 17:32:Lisbeth Ryan RN) Diabetes Type: Gestational Diabetes (12/03/2016 17:32:Lisbeth Ryan RN) Med Hx Hypertension: Yes (12/03/2016 17:32:Lisbeth Ryan RN) Med Hx Heart Disease: No (12/03/2016 17:32:Lisbeth Ryan RN) Med Hx Autoimmune Disorder: No (12/03/2016 17:32:Lisbeth Ryan RN) Med Hx Kidney Disease/UTI: No (12/03/2016 17:32:Lisbeth Ryan RN) Med Hx Neurologic/Epilepsy: No (12/03/2016 17:32:Lisbeth Ryan RN) Med Hx Psychiatric Disorders: No (12/03/2016 17:32:Lisbeth Ryan RN) Med Hx Hepatitis/Liver Disease: No (12/03/2016 17:32:Lisbeth Ryan RN) Med Hx Varicosities/Phlebitis: No (12/03/2016 17:32:Lisbeth Ryan RN) Med Hx Thyroid Dysfunction: No (12/03/2016 17:32:Lisbeth Ryan RN) Med Hx Trauma/Violence: No (12/03/2016 17:32:Lisbeth Ryan RN) Med Hx Blood Transfusion: No (12/03/2016 17:32:Lisbeth Ryan RN) Med Hx Pulmonary (Asthma,TB): No (12/03/2016 17:32:Lisbeth Ryan RN) Med Hx Breast: No (12/03/2016 17:32:Lisbeth Ryan RN) Med Hx CIRCULATION MANAGER Surgery: No (12/03/2016 17:32:Lisbeth Ryan RN) Med Hx Hospitalization/Surgery: Yes (12/03/2016 17:32:Lisbeth Ryan RN) Med Hx Anesthetic Complications: No (12/03/2016 17:32:Lisbeth Ryan RN) Med Hx Abnormal Pap Smear: No (12/03/2016 17:32:Lisbeth Ryan RN) Other Medical Diseases: No (12/03/2016 17:32:Lisbeth Ryan RN) Med Hx Significant Family Hx: No (12/03/2016 17:32:Lisbeth Ryan RN) Details of Med/Surg Hx: on BP meds prior to (12/03/2016 17:32:Lisbeth Ryan RN) INFECTIOUS HISTORY Inf Hx Gonorrhea: No (12/03/2016 17:32:Lisbeth Ryan RN) Inf Hx Chlamydia: No (12/03/2016 17:32:Lisbeth Ryan RN) Inf Hx Syphilis: No (12/03/2016 17:32:Lisbeth Ryan RN) Inf Hx HIV/AIDS: No (12/03/2016 17:32:Lisbeth Ryan RN) Inf Hx Human Papilloma Virus: No (12/03/2016 17:32:Lisbeth Ryan RN) Inf Hx Pt/Partner Genital Herpes: No (12/03/2016 17:32:Lisbeth Ryan RN) Inf Hx Tuberculosis/Exposure: No (12/03/2016 17:32:Lisbeth Ryan RN) Inf Hx Hepatitis B,C: No (12/03/2016 17:32:Lisbeth Ryan RN) Inf Hx Rash or Viral Illness: No (12/03/2016 17:32:Lisbeth Ryan RN) GENETIC HISTORY Gen Hx Age >=35 at JANE: No (12/03/2016 17:32:Lisbeth Ryan RN) Gen Hx Thalassemia: No (12/03/2016 17:32:Lisbeth Ryan RN) Gen Hx Congenital Heart Defect: No (12/03/2016 17:32:Lisbeth Ryan RN) Gen Hx Neural Tube Defect: No (12/03/2016 17:32:Lisbeth Ryan RN) Gen Hx Down's Syndrome: No (12/03/2016 17:32:Lisbeth Ryan RN) Gen Hx Montez-Sachs: No (12/03/2016 17:32:Lisbeth Ryan RN) Gen Hx Ami: No (12/03/2016 17:32:Lisbeth Ryan RN) Gen Hx Familial Dysautonomia: No (12/03/2016 17:32:Lisbeth Ryan RN) Gen Hx Sickle Cell Disease/Trait: No (12/03/2016 17:32:Lisbeth Ryan RN) Gen Hx Hemophilia/Blood Disorder: No (12/03/2016 17:32:Lisbeth Ryan RN) Gen Hx Muscular Dystrophy: No (12/03/2016 17:32:Lisbeth Ryan RN) Gen Hx Cystic Fibrosis: No (12/03/2016 17:32:Lisbeth Ryan RN) Gen Hx Huntingtons Chorea: No (12/03/2016 17:32:Lisbeth Ryan RN) Gen Hx Mental Retardation/Autism: No (12/03/2016 17:32:Lisbeth Ryan RN) Gen Hx Tested for Fragile X: No (12/03/2016 17:32:Lisbeth Ryan RN) Gen Hx Other Inher/Chromosomal: No (12/03/2016 17:32:Lisbeth Ryan RN) Gen Hx Maternal Metabolic DO: No (12/03/2016 17:32:Lisbeth Ryan RN) Gen Hx Pt Father or FOB Defect: No (12/03/2016 17:32:Lisbeth Ryan RN) Gen Hx Other Genetic History: No (12/03/2016 17:32:Lisbeth Ryan RN) Gen Hx Drugs/Meds since LMP: Yes (12/03/2016 17:32:Lisbeth Ryan RN) Gen Hx Medications: PNV, Glyburide, aspirin (12/03/2016 17:32:Lisbeth Ryan RN)
--- NOTE | 2016-12-20 06:15 | L&D Care Plan ---
LD CARE PLANS Datetime Report Generated by CPN: 12/20/2016 06:15 Datetime: 12/19/2016 06:48 State: Risk For (Berenice Pride RN) Related To: Labor and Delivery Process; Treatment and Procedures (Berenice Pride RN) Goal(s): Patients Pain will be Assessed and Managed; Patient will Verbalize Adequate Relief of Pain or the Ability to [place] with Current Pain (Berenice Pride RN) Interventions: Assess Pain Severity on Scale of 0 (None) to 5 (Severe); Assess Type, Location and Intensity of Pain Each Time Client Reports Discomfort and Notify Provider if Unusal Pain Develops; Encourage Proper Breathing and Relaxation Techniques; Offer Alternatives Such as Repositioning, Calm Environment, Massages, Diversional Activities, Ice Pack, Splinting, and Ambulation; Administer Analgesics as Ordered; Assist with Epidural Placement as Appropriate; Evaluate Therapeutic Effectiveness of Medication and Treatments (Berenice Pride RN) Outcome: Patient will Report Absence or Relief of Pain Consistent with Established Pain Goal (Berenice Pride RN) Status: Ongoing (Berenice Pride RN) Outcome: Patient will have a Decrease in Signs and Symptoms of Discomfort (Berenice Pride RN) Status: Ongoing (Berenice Pride RN) Outcome: Pain will be Controlled During Procedures (Berenice Pride RN) Status: Ongoing (Berenice Pride RN) State: Risk For (Berenice Pride RN) Related To: Labor and Delivery Process; Perceived or Actual Threat to ; Fear of Unknown; Situational Crisis; Medical Interventions; Significant Life Event (Berenice Pride RN) Goal(s): Patient will have Decreased Anxiety and be able to Function at Acceptable Levels (Berenice Pride RN) Interventions: Assess Verbal and Nonverbal Behavioral Indicators of Anxiety; Assist Patient to Identify and Verbalize Symptoms of Anxiety; Identify and Demonstrate Techniques to Control Anxiety; Assist Patient with Coping Mechanisms to Manage Anxiety; Provide Theraputic Touch for the Patient; Explain to Patient, Using a Calm Reassuring Approach and Nonmedical Terms, All Activities, Procedures, and Concerns; Instruct Patient and Family about Post Discharge Care, Limitations, Symptoms to Report and Resources Available (Berenice Pride RN) Outcome: Patient will Identify, Verbalize and Demonstrate Techniques to Control Anxiety (Berenice Pride RN) Status: Ongoing (Berenice Pride RN) Outcome: Patient's Posture, Facial Expressions, Gestures and Activity Level will Reflect Decreased Anxiety (Berenice Pride RN) Status: Ongoing (Berenice Pride RN) Outcome: Patient will Verbalize a Sense of Control and/or Acceptance of the Situation (Berenice Pride RN) Status: Ongoing (Berenice Pride RN) Outcome: Patient will Identify and Utilize Support Person (Berenice Pride RN) Status: Ongoing (Berenice Pride RN) State: Risk For (Berenice Pride RN) Related To: Labor and Delivery Process; Treatment and Procedures (Berenice Pride RN) Goal(s): Patient will Accurately Verbalize Understanding of Plan of Care and Treatment; Patient and Family will Accurately Verbalize Understanding of the Disease Process (Berenice Pride RN) Interventions: Assess Motivation and Willingness of Patient/Family to Learn; Assess Preferred Learning Mode: One to One Instruction, Reading, Videos, Group Discussion or Demonstration; Assess Barriers to Learning: Pain, Emotional State, Language Barrier, Cognitive Impairment, Visual or Hearing Deficits; Assess Patient and Family Knowledge of Disease Process, Medications and Treatment; Discuss Therapy and/or Treatment Options, Describe Rationale Behind Management, Therapy and Treatment Recommendations; Instruct Patient and Family on Signs and Symptoms to Report; Instruct Patient and Family on Medication Effects and Side Effects; Provide Appropriate and Timely Education Using Multiple Techniques; Provide Patient and Family with Support Group Information and Resources; Give Clear and Thorough Explanations and Demonstrations (Berenice Pride RN) Outcome: Patient and Family will Verbalize Understanding of Condition, Treatment and Signs and Symptoms to Report (Berenice Pride RN) Status: Ongoing (Berenice Pride RN) Outcome: Patient will Identify Perceived Learning Needs and Express Motivation to Learn (Berenice Pride RN) Status: Ongoing (Berenice Pride RN) Outcome: Patient will Verbalize Understanding of Desired Content, and/or Performs Desired Skill Prior to Discharge (Berenice Pride RN) Status: Ongoing (Berenice Pride RN) State: Risk For (Beernice Pride RN) Related To: Prolonged Labor or Induction; Invasive Procedures (Berenice Pride RN) Goal(s): The Patient will be Free of Infection, Vital Signs Stable and Lab Work within Normal Parameters (Berenice Pride RN) Interventions: Instruct and Reinforce Proper Handwashing, Hygiene, and Care Techniques to Patient and Family; Monitor Vital Signs; Monitor Patient for the Following Signs of Infection: Fever, Abdominal Tenderness, Unusual Discharge; Monitor Aminiotic Fluid, Urine and Lochia for Color and Odor; Observe Wounds, Incisions and Invasive Line Sites for Redness, Drainage and Edema; Assess IV Sites per Hospital Policy; Monitor Lab and Test Results and Notify Provider of Abnormal Findings; Assess Nutritional Status and Promote Good Nutrition (Berenice Pride RN) Outcome: Patient will Remain Free of Infection (Berenice Pride RN) Status: Ongoing (Berenice Pride RN) Outcome: Infection will be Recognized Early to Allow for Prompt Treatment (Berenice Pride RN) Status: Ongoing (Berenice Pride RN) Outcome: Patient will have Vital Signs Within Expected Range (Berenice Pride RN) Status: Ongoing (Berenice Pride RN) State: Risk For (Berenice Pride RN) Related To: Labor and Delivery Process; Gestational Hypertension or Eclampsia (Berenice Pride RN) Goal(s): Patient will Remain Free from Injury (Berenice Pride RN) Interventions: Monitoring as per Hospital Protocol; Assess Neurological Status; Perform Risk Assessment of Patients with Induction and ; Perform Fall Risk Assessment and Prevention per Hospital Protocol; Perform DVT Risk Assessment and Prophylaxis per Hospital Protocol; Ensure that Oxygen, Suction, and Resuscitation Medications and Equipment are Readily Available; Confirm Patient ID Prior to Procedure(s) and Medication Administration per Hospital Policy (Berenice Pride RN) Outcome: Successful Fall Risk Prevention (Berenice Pride RN) Status: Ongoing (Berenice Pride RN) Outcome: Patient will Deliver Infant without Adverse [place] (Berenice Pride RN) Status: Ongoing (Berenice Pride RN) Outcome: Patient's Neurological Status will Remain Stable (Berenice Pride RN) Status: Ongoing (Berenice Pride RN)
[2016-12-20 07:47] LABS: HEMATOCRIT 38.2 % (36.0-47.0); HEMOGLOBIN 12.7 g/dL (12.0-15.5); HGB HCT DIFFERENCE -0.1; MEAN CORPUSCULAR HEMOGLOBIN 29.8 pg (27.0-33.4); MEAN CORPUSCULAR HGB CONC 33.4 g/dL (32.0-36.0); MEAN CORPUSCULAR VOLUME 89 fl (80-97); RED BLOOD COUNT 4.27 10^6/uL (3.72-5.28); RED CELL DISTRIBUTION WIDTH 13.7 % (11.5-14.0); WHITE BLOOD COUNT 13.3 10^3/uL (4.0-10.5)
[2016-12-20] MEDS: DOCUSATE SODIUM 100 MG CAPSULE PO SCH ×2 (10:04→18:10)
[2016-12-20] MEDS: PRENATAL VITAMIN W-O CA NO5/FE FUMARATE/FA CAPSULE PO SCH (10:05)
[2016-12-20] MEDS: SENNOSIDES/DOCUSATE 8.6-50 MG 1 EACH TABLET PO SCH (10:05)
[2016-12-20] MEDS: FERROUS SULFATE 325 MG TABLET PO SCH ×2 (10:05→18:09)
--- NOTE | 2016-12-20 16:50 | PDOC PROGRESS REPORT ---
Subjective-OB Subjective: Post Delivery Day:1 31 year old s/p . Denies any needs at this time Physical Exam (OB) Vital Signs: Temp Pulse Resp BP Pulse Ox 98.4 F 74 16 105/66 100 12/20/16 15:13 12/20/16 15:13 12/20/16 15:13 12/20/16 15:13 12/20/16 15:13 Intake & Output 12/19/16 12/20/16 12/21/16 06:59 06:59 06:59 Weight 83 kg - General General Appearance: Appears well In distress: None - PIH/Pre-Eclampsia Headache: Absent Epigastric Pain: No Visual Changes: No - Episiotomy/Laceration Site Condition: N/A - Lochia Lochia Amount: Small 10-25 ml Lochia Color: Rubra/Red - Abdomen Description: Soft Hernia Present: No Fundal Description: Firm, Midline Fundal Height: u/u - u/2 - Respiratory Respiratory Status: No respiratory distress - Extremities Upper extremity: Normal inspection Lower extremities: Normal inspection - Neurological Cognition: Normal Orientation: AAOx4 - Psychological Associated symptoms: Normal affect, Normal mood - bonding well with baby (baby at bedside). Objective-Diagnostic Laboratory: 12/20/16 07:05 12/19/16 07:04 12/20/16 07:05 WBC 13.3 H RBC 4.27 Hgb 12.7 Hct 38.2 MCV 89 MCH 29.8 MCHC 33.4 RDW 13.7 Plt Count 249
[2016-12-21] MEDS: IBUPROFEN 800 MG TABLET PO SCH (06:11)
[2016-12-21] MEDS: SENNOSIDES/DOCUSATE 8.6-50 MG 1 EACH TABLET PO SCH (09:36)
[2016-12-21] MEDS: DOCUSATE SODIUM 100 MG CAPSULE PO SCH (09:36)
[2016-12-21] MEDS: FERROUS SULFATE 325 MG TABLET PO SCH (09:36)
[2016-12-21] MEDS: PRENATAL VITAMIN W-O CA NO5/FE FUMARATE/FA CAPSULE PO SCH (09:36)
[2016-12-21 09:59] VITALS: BP 116/82
--- NOTE | 2016-12-21 10:34 | PDOC PROGRESS REPORT ---
Subjective-OB Subjective: Post Delivery Day: 31 year old. Denies any needs at this time Doing well, no c/o ready to go home, breast feeding Physical Exam (OB) Vital Signs: Temp Pulse Resp BP Pulse Ox 98.2 F 74 16 116/82 99 12/21/16 09:56 12/21/16 09:56 12/21/16 09:56 12/21/16 09:56 12/21/16 09:56 Intake & Output 12/20/16 12/21/16 12/22/16 06:59 06:59 07:59 Weight 83 kg - PIH/Pre-Eclampsia Clonus: Negative Headache: Absent Epigastric Pain: No Visual Changes: No - Lochia Lochia Amount: Scant < 10 ml Lochia Color: Rubra/Red - Abdomen Description: Tender, Soft Hernia Present: No Fundal Description: Firm, Midline Fundal Height: u/u - u/2 Objective-Diagnostic Laboratory: 12/20/16 07:05 12/19/16 07:04 Assessment and Plan(PN) - Assessment and Plan (1) Vaginal delivery Is this a current diagnosis for this admission?: Yes - Time Spent with Patient Time with patient: Less than 15 minutes Medications reviewed and adjusted accordingly: Yes - Disposition Anticipated Discharge: Home Within: Other - home today
--- NOTE | 2016-12-21 10:36 | PDOC DISCHARGE SUMMARY ---
Final Diagnosis Discharge Date: 12/21/16 - Final Diagnosis (1) Vaginal delivery Is this a current diagnosis for this admission?: Yes Discharge Data - Discharge Medication Home Medications: Aspirin 81 mg PO DAILY PRN 12/03/16 Glyburide 1 tab PO DAILY 12/03/16 Ecs066/Iron Fumarate/FA/Dss [ 19 Tablet] 1 tab PO DAILY 12/03/16 Gestational Age: 38 Reason(s) for Admission: Induction of Labor, PIH, Group B Strep Positive Procedures: NST, Ultrasound Complication(s): Laceration-Vaginal - Data Baby 1 Female at 1 minute: 9 at 5 minutes: 9 Weight: 3.147 kg Home with Mother: Yes Complications: No - Diagnosis Test Laboratory: Temp Pulse Resp BP Pulse Ox 98.2 F 74 16 116/82 99 12/21/16 09:56 12/21/16 09:56 12/21/16 09:56 12/21/16 09:56 12/21/16 09:56 12/19/16 12/19/16 12/20/16 06:46 07:04 07:05 RBC 4.28 4.27 Hgb 12.9 12.7 Hct 38.0 38.2 Urine Opiates Screen NEGATIVE - Discharge information/Instructions Discharge Activity: Activity As Tolerated, No Lifting Over 10 Pounds, Pelvic Rest, No tub bath Discharge Diet: As Tolerated, Regular Disposition: HOME, SELF-CARE Follow up with: [facility] in: 1, Weeks - check BP
== END 2016-12-21 12:46 | disposition home or self-care (01) | DRG 775 ==
LOC: LR 06:28 → 2S 16:10
PROVIDERS: ADMIT Obstetrics & Gynecology; ATTEND Obstetrics & Gynecology
PROC: 10E0XZZ Delivery of Products of Conception, External Approach (ICD-10-PCS; principal; 2016-12-19)
PROC: 4A1HXCZ Monitoring of Products of Conception, Cardiac Rate, External Approach (ICD-10-PCS; 2016-12-19)
PROC: 3E033VJ Introduction of Other Hormone into Peripheral Vein, Percutaneous Approach (ICD-10-PCS; 2016-12-19)
DX: O13.4 Gestational [pregnancy-induced] hypertension without significant proteinuria, complicating childbirth (principal); O24.425 Gestational diabetes mellitus in childbirth, controlled by oral hypoglycemic drugs; O99.824 Streptococcus B carrier state complicating childbirth; Z37.0 Single live birth; Z3A.38 38 weeks gestation of pregnancy
CPT/HCPCS: 36415; 80053; 80307; 81005; 82962; 83615; 84550; 85025; 85027; 86592; 86850; 86900; 86901; 94760; J2540; J2590; J3490